=== PATIENT | male | born 1990 | race African-American/Black ===

== ENCOUNTER 2023-07-06 07:57 | Emergency (ER) | payer MEDICAID, SELFPAY ==
--- NOTE | ~2023-07-06 | CT_ITS ---
EXAMINATION: CT HEAD WITHOUT CONTRAST CLINICAL INFORMATION: Headaches. COMPARISON: None. TECHNIQUE: Contiguous axial imaging was performed from the skullbase to vertex without intravenous administration of contrast. This CT examination was performed using dose optimization techniques as appropriate, variously including the following: *Automated exposure control *Adjustment of mA and/or kV according to patient size (this includes techniques or standardized protocols for targeted exams where dose is matched to indication/reason for exam; i.e. extremities or head) *Use of iterative reconstruction technique DLP: 634 mGy-cm. FINDINGS: There is no evidence of acute intracranial hemorrhage or territorial infarction. No abnormal mass effect or midline shift is seen. Diaz to white matter differentiation is well preserved. No extra-axial fluid collections are identified. The ventricles are normal in size. 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 There is no abnormal attenuation within the brain parenchyma. The osseous structures and soft tissues are normal. The mastoid air cells and visualized portions of the paranasal sinuses are well aerated. CT/CT head/brain wo IV con IMPRESSION: No acute intracranial pathology.
[2023-07-06 08:29] VITALS: BP 126/66; PULSE 105; RESP 18; TEMP 36.7; O2SAT 99; BMI 20.7
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
== END 2023-07-06 11:12 | disposition home or self-care (01) ==
PROVIDERS: Emergency Provider Emergency Medicine
DX: G44.209 Tension-type headache, unspecified, not intractable (principal)
CPT/HCPCS: 70450; 99282; 99284

== ENCOUNTER 2023-08-14 23:38 | Emergency (ER) | payer MEDICAID, SELFPAY ==
[2023-08-14 23:49] VITALS: BP 125/85; PULSE 90; RESP 16; TEMP 37; O2SAT 98; BMI 24.6
--- OUTSIDE RECORDS SUMMARY | 2023-08-15 00:02 | XMS_ITS | Continuity of Care Document ---
Author Name Unknown Organization [facility] Address [address] [place] [address]- Care Team Providers Care Tax Credit Leasing Consultant Name Role Phone Hema Luke DO Primary Care Physician [place] [facility] [place]20 [facility] [address] [place], [place] [address] Allergies, Adverse Reactions, Alerts Substance Reaction Severity Status NKA Active Immunizations Not Given Vaccine Date Status Refusal Reason pneumococcal 23-valent vaccine 11/27/20 Not Given Patient Refuses influenza virus vaccine, inactivated 11/27/20 Not Given Patient Refuses Medications benztropine 1 mg oral tablet 0.5 mg, 0.5, tablet, By Mouth, 2 times a day, <OMANI LABEL>, # 30 tablet, Refills 1, Tot. Refills 1, Maintenance, 12/04/20 11:40:00 EST, Route to Pharmacy Electronically, [facility]#[id number], Partial fill upon patient request if the prescrip... Start Date: 12/04/20 Status: Ordered cloNIDine 0.1 mg oral tablet 0.1 mg, 1, tablet, By Mouth, 3 times a day, <OMANI LABEL>, # 90 tablet, Refills 1, Tot. Refills 1, Maintenance, 12/04/20 11:40:00 EST, Route to Pharmacy Electronically, [facility] #[id number], Partial fill upon patient request if the prescripti... Start Date: 12/04/20 Status: Ordered Colace sodium 100 mg oral capsule 100 mg, 1, capsule, By Mouth, 2 times a day, <OMANI LABEL>, # 60 capsule, Refills 1, Tot. Refills 1, Maintenance, 12/04/20 11:40:00 EST, Route to Pharmacy Electronically, [facility]#[id number], Partial fill upon patient request if the prescrip... Start Date: 12/04/20 Status: Ordered FLUoxetine 10 mg oral capsule 10 mg, 1, capsule, By Mouth, Daily, <OMANI LABEL>, # 30 capsule, Refills 1, Tot. Refills 1,Maintenance, 12/04/20 11:40:00 EST, Route to Pharmacy Electronically, [facility] #[id number], Partial fill upon patient request if the prescription is f... Start Date: 12/04/20 Status: Ordered hydrOXYzine pamoate 50 mg oral capsule 1 capsule = 50 mg, By Mouth, 2 times a day, PRN Anxiety, Take one tablet up to twice daily NEEDED for anxiety/sleep <OMANI LABEL>, # 60 capsule, 1 Refills, Maintenance, 12/04/20 11:40:00 EST, Capsule, [facility] #[id number], Partial fill up... Start Date: 12/04/20 Status: Ordered Nicoderm C-Q 7 mg/24 hr transdermal film, extended release 1 patch, Topically, Daily, <OMANI LABEL>, # 30 patch, 0 Refills, Acute 01/02/21 11:42:00 EDT, 12/04/20 11:40:00 EST, Patch, [facility] #[id number], Partial fill upon patient request if the prescription is for a schedule II opioid drug., 170, cm... Start Date: 12/04/20 Stop Date: 01/02/21 Status: Ordered omeprazole 20 mg oral delayed release tablet 1 tablet = 20 mg, By Mouth, Daily in AM, # 30 tablet, 0 Refills, Maintenance, 01/11/18 10:37:23 EDT, EC Tablet Start Date: 01/11/18 Stop Date: 02/10/18 Status: Ordered paliperidone 156 mg/mL intramuscular suspension, extended release = 156 mg, Intramuscular, Once, To administer 156mg IM once on 12/11/2020 (to complete induction). Following doses [id number] thereafter, # 1 each, 0 Refills, Soft Stop, 12/04/20 11:40:00 EST, [facility] #[id number], Partial fill upon patient request... Start Date: 12/04/20 Status: Ordered risperiDONE 1 mg oral tablet 1 mg, 1, tablet, By Mouth, 2 times a day, Stop taking after NEXT Invega injection due on 12/11 <OMANI LABEL>, # 20 tablet, Refills 0, Tot. Refills 0, Maintenance, 12/04/20 11:40:00 EST, Route to Pharmacy Electronically, [facility] #[id number], P... Start Date: 12/04/20 Status: Ordered Tums 500 mg oral tablet, chewable 500 mg, 1, tablet, Chew, 3 times a day, PRN, # 90 tablet, Refills 0, Tot. Refills 0, Maintenance, for control of stomach acid, 01/27/18 16:14:03 EDT, Route to Pharmacy Electronically, [id number], [facility] Start Date: 01/27/18 Status: Ordered Social History Social History Type Response Smoking Status Never smoker entered on: 01/27/18 Sex
--- OUTSIDE RECORDS SUMMARY | 2023-08-15 00:02 | XMS_ITS | Continuity of Care Document ---
Author Name Unknown Organization [facility] Address [address] [place] [address]- Care Team Providers Care Instrument Technician Helper Name Role Phone Hema Luke DO Primary Care Physician [phone] [id number] Date(s): 06/07/22 - 07/18/22 [facility] [address] [place], [place] [address] Attending Physician: Not on Staff, Attending MD Allergies, Adverse Reactions, Alerts No Known Allergies Immunizations Not Given Vaccine Date Status Refusal Reason pneumococcal 23-valent vaccine 11/27/20 Not Given Patient Refuses influenza virus vaccine, inactivated 11/27/20 Not Given Patient Refuses Medications Abilify 15 mg oral tablet 15 mg, 1, tablet, By Mouth, Daily, # 30 tablet, Refills 11, Tot. Refills 11, Maintenance, 12/19/20 9:10:00 EST, Route to Pharmacy Electronically, [facility] #[id number], Label in Burmese, 170, cm, 12/19/20 8:04:00 EST, Height, 47, kg, 12/10/20 16... Start Date: 12/19/20 Status: Ordered benztropine 1 mg oral tablet 0.5 mg, 0.5, tablet, By Mouth, 2 times a day, # 30 tablet, Refills 11, Tot. Refills 11, Maintenance, 12/19/20 9:11:00 EST, Route to Pharmacy Electronically, [facility] #[id number], Label in Burmese, 170, cm, 12/19/20 8:04:00 EST, Height, 47, kg,... Start Date: 12/19/20 Status: Ordered Colace sodium 100 mg oral capsule 100 mg, 1, capsule, By Mouth, 2 times a day, <MOHAWK LABEL>, # 60 capsule, Refills 1, Tot. Refills 1, Maintenance, 12/04/20 11:40:00 EST, Route to Pharmacy Electronically, [facility]#[id number], Partial fill upon patient request if the prescrip... Start Date: 12/04/20 Status: Ordered hydrOXYzine pamoate 50 mg oral capsule 1 capsule = 50 mg, By Mouth, 2 times a day, PRN as needed for anxiety, # 40 capsule, 0 Refills, Maintenance, 12/17/20 8:40:00 EST, Capsule, [facility] #[id number], Label in Burmese, 170, cm, 12/16/20 22:59:00 EST, Height, 47, kg, 12/10/20 16:52:0... Start Date: 12/17/20 Status: Ordered mirtazapine 15 mg oral tablet 0.5 tablet = 7.5 mg, By Mouth, Daily at bedtime, # 15 tablet, 11 Refills, Maintenance, 12/19/20 9:11:00 EST, Tablet, [facility] #[id number], Label in Burmese, 170, cm, 12/19/20 8:04:00 EST, Height, 47, kg, 12/10/20 16:52:00 EST, Dry Weight Start Date: 12/19/20 Status: Ordered Nicoderm C-Q 7 mg/24 hr transdermal film, extended release 1 patch, Topically, Daily, # 30 patch, 0 Refills, Maintenance, 12/17/20 8:43:00 EST, Patch, [facility] #[id number], Label in Burmese, 170, cm, 12/16/20 22:59:00 EST, Height, 47, kg, 12/10/20 16:52:00 EST, Dry Weight Start Date: 12/17/20 Status: Ordered pantoprazole 20 mg oral delayed release tablet = 20 mg, By Mouth, Daily, # 30 tablet, 0 Refills, Maintenance, 12/17/20 8:42:00 EST, EC Tablet, Label in Burmese, 170, cm, 12/16/20 22:59:00 EST, Height, 47, kg, 12/10/20 16:52:00 EST, Dry Weight Start Date: 12/17/20 Status: Ordered propranolol 10 mg oral tablet 10 mg, 1, tablet, By Mouth, 3 times a day, # 90 tablet, Refills 11, Tot. Refills 11, Maintenance, 12/19/20 9:10:00 EST, Route to Pharmacy Electronically, [facility] #[id number], Label in Burmese, 170, cm, 12/19/20 8:04:00 EST, Height, 47, kg, 02/... Start Date: 12/19/20 Status: Ordered Tums 500 mg oral tablet, chewable 500 mg, 1, tablet, Chew, 3 times a day, PRN, # 90 tablet, Refills 0, Tot. Refills 0, Maintenance, for control of stomach acid, 01/27/18 16:14:03 EDT, Route to Pharmacy Electronically, [id number], [facility] 5278 Start Date: 01/27/18 Status: Ordered Social History Social History Type Response Smoking Status Never smoker entered on: 01/27/18 Sex Patient Care team information Personnel Name: Hema Luke DO Address: Address: [address] [place] [address] [place], [place] [address]
--- OUTSIDE RECORDS SUMMARY | 2023-08-15 00:02 | XMS_ITS | Continuity of Care Document ---
Author Name Unknown Organization [facility] Address [address] [place] [address]- Care Team Providers Care Maintenance Team Leader Name Role Phone Hema Luke DO Primary Care Physician [phone] [place] [facility] [place]/25[place]23 [place] 03/27/23 [facility] [address] [place], [place] [address] Attending Physician: Kaycee Bell Admitting Physician: Kaycee Bell Referring Physician: Kaycee Bell Allergies, Adverse Reactions, Alerts No Known Allergies Immunizations Not Given Vaccine Date Status Refusal Reason pneumococcal 23-valent vaccine 11/27/20 Not Given Patient Refuses influenza virus vaccine, inactivated 11/27/20 Not Given Patient Refuses Medications Abilify 15 mg oral tablet 15 mg, 1, tablet, By Mouth, Daily, # 30 tablet, Refills 11, Tot. Refills 11, Maintenance, 12/19/20 9:10:00 EST, Route to Pharmacy Electronically, [facility] #[id number], Label in Marshallese, 170, cm, 12/19/20 8:04:00 EST, Height, 47, kg, 12/10/20 16... Start Date: 12/19/20 Status: Ordered benztropine 1 mg oral tablet 0.5 mg, 0.5, tablet, By Mouth, 2 times a day, # 30 tablet, Refills 11, Tot. Refills 11, Maintenance, 12/19/20 9:11:00 EST, Route to Pharmacy Electronically, [facility] #[id number], Label in Marshallese, 170, cm, 12/19/20 8:04:00 EST, Height, 47, kg,... Start Date: 12/19/20 Status: Ordered Colace sodium 100 mg oral capsule 100 mg, 1, capsule, By Mouth, 2 times a day, <SUDANESE LABEL>, # 60 capsule, Refills 1, Tot. Refills 1, Maintenance, 12/04/20 11:40:00 EST, Route to Pharmacy Electronically, [facility]#[id number], Partial fill upon patient request if the prescrip... Start Date: 12/04/20 Status: Ordered hydrOXYzine pamoate 50 mg oral capsule 1 capsule = 50 mg, By Mouth, 2 times a day, PRN as needed for anxiety, # 40 capsule, 0 Refills, Maintenance, 12/17/20 8:40:00 EST, Capsule, [facility] #[id number], Label in Marshallese, 170, cm, 12/16/20 22:59:00 EST, Height, 47, kg, 12/10/20 16:52:0... Start Date: 12/17/20 Status: Ordered mirtazapine 15 mg oral tablet 0.5 tablet = 7.5 mg, By Mouth, Daily at bedtime, # 15 tablet, 11 Refills, Maintenance, 12/19/20 9:11:00 EST, Tablet, [facility] #[id number], Label in Marshallese, 170, cm, 12/19/20 8:04:00 EST, Height, 47, kg, 12/10/20 16:52:00 EST, Dry Weight Start Date: 12/19/20 Status: Ordered Nicoderm C-Q 7 mg/24 hr transdermal film, extended release 1 patch, Topically, Daily, # 30 patch, 0 Refills, Maintenance, 12/17/20 8:43:00 EST, Patch, [facility] #[id number], Label in Marshallese, 170, cm, 12/16/20 22:59:00 EST, Height, 47, kg, 12/10/20 16:52:00 EST, Dry Weight Start Date: 12/17/20 Status: Ordered pantoprazole 20 mg oral delayed release tablet = 20 mg, By Mouth, Daily, # 30 tablet, 0 Refills, Maintenance, 12/17/20 8:42:00 EST, EC Tablet, Label in Marshallese, 170, cm, 12/16/20 22:59:00 EST, Height, 47, kg, 12/10/20 16:52:00 EST, Dry Weight Start Date: 12/17/20 Status: Ordered propranolol 10 mg oral tablet 10 mg, 1, tablet, By Mouth, 3 times a day, # 90 tablet, Refills 11, Tot. Refills 11, Maintenance, 12/19/20 9:10:00 EST, [id number], Label in Marshallese, 170, cm, 12/19/20 8:04:00 EST, Height, 47, kg, 02/... Start Date: 12/19/20 Status: Ordered Tums 500 mg oral tablet, chewable 500 mg, 1, tablet, Chew, 3 times a day, PRN, # 90 tablet, Refills 0, Tot. Refills 0, Maintenance, for control of stomach acid, 01/27/18 16:14:03 EDT, Route to Pharmacy Electronically, [id number], [facility] 5278 Start Date: 01/27/18 Status: Ordered Social History Social History Type Response Smoking Status Never smoker entered on: 01/27/18 Sex Patient Care team information Care Team Personnel Name: Radha Walker RN Position: [facility] RN Member Role: Primary Care Nurse Name: Beau Bradford Position: S Outreach Member Role: Lifetime Consulting Physician Name: Steffany Fernandez RN Position: S RN Member Role: Primary Care Nurse Name: Josiane Asher RN Position: [facility] RN Supv Member Role: Primary Care Nurse Name: Hema Luke DO Position: [facility] Resident Member Role: PCP Address: Address: [address] [place] [id number]- Care Team Related Persons Name: MARIANO DAVILA Address: home [address] [place] [address] Name: JAYASHREE COBIAN
--- OUTSIDE RECORDS SUMMARY | 2023-08-15 00:02 | XMS_ITS | Continuity of Care Document ---
Author Name Unknown Organization [facility] Address [address] [place] [address]- Care Team Providers Care Verification Clerk Name Role Phone Hema Luke DO Primary Care Physician En[place] [facility] [place] Date(s): 11/25/22 - 12/25/[address] [address] Allergies, Adverse Reactions, Alerts No Known Allergies Immunizations Not Given Vaccine Date Status Refusal Reason pneumococcal 23-valent vaccine 11/27/20 Not Given Patient Refuses influenza virus vaccine, inactivated 11/27/20 Not Given Patient Refuses Medications Abilify 15 mg oral tablet 15 mg, 1, tablet, By Mouth, Daily, # 30 tablet, Refills 11, Tot. Refills 11, Maintenance, 12/19/20 9:10:00 EST, Route to Pharmacy Electronically, [facility] #[id number], Label in Scottish, 170, cm, 12/19/20 8:04:00 EST, Height, 47, kg, 12/10/20 16... Start Date: 12/19/20 Status: Ordered benztropine 1 mg oral tablet 0.5 mg, 0.5, tablet, By Mouth, 2 times a day, # 30 tablet, Refills 11, Tot. Refills 11, Maintenance, 12/19/20 9:11:00 EST, Route to Pharmacy Electronically, [facility] #[id number], Label in Scottish, 170, cm, 12/19/20 8:04:00 EST, Height, 47, kg,... Start Date: 12/19/20 Status: Ordered Colace sodium 100 mg oral capsule 100 mg, 1, capsule, By Mouth, 2 times a day, <FRENCH LABEL>, # 60 capsule, Refills 1, Tot. Refills 1, Maintenance, 12/04/20 11:40:00 EST, Route to Pharmacy Electronically, [facility]#[id number], Partial fill upon patient request if the prescrip... Start Date: 12/04/20 Status: Ordered hydrOXYzine pamoate 50 mg oral capsule 1 capsule = 50 mg, By Mouth, 2 times a day, PRN as needed for anxiety, # 40 capsule, 0 Refills, Maintenance, 12/17/20 8:40:00 EST, Capsule, [facility] #[id number], Label in Scottish, 170, cm, 12/16/20 22:59:00 EST, Height, 47, kg, 12/10/20 16:52:0... Start Date: 12/17/20 Status: Ordered mirtazapine 15 mg oral tablet 0.5 tablet = 7.5 mg, By Mouth, Daily at bedtime, # 15 tablet, 11 Refills, Maintenance, 12/19/20 9:11:00 EST, Tablet, [facility] #[id number], Label in Scottish, 170, cm, 12/19/20 8:04:00 EST, Height, 47, kg, 12/10/20 16:52:00 EST, Dry Weight Start Date: 12/19/20 Status: Ordered Nicoderm C-Q 7 mg/24 hr transdermal film, extended release 1 patch, Topically, Daily, # 30 patch, 0 Refills, Maintenance, 12/17/20 8:43:00 EST, Patch, [facility] #[id number], Label in Scottish, 170, cm, 12/16/20 22:59:00 EST, Height, 47, kg, 12/10/20 16:52:00 EST, Dry Weight Start Date: 12/17/20 Status: Ordered pantoprazole 20 mg oral delayed release tablet = 20 mg, By Mouth, Daily, # 30 tablet, 0 Refills, Maintenance, 12/17/20 8:42:00 EST, EC Tablet, Label in Scottish, 170, cm, 12/16/20 22:59:00 EST, Height, 47, kg, 12/10/20 16:52:00 EST, Dry Weight Start Date: 12/17/20 Status: Ordered propranolol 10 mg oral tablet 10 mg, 1, tablet, By Mouth, 3 times a day, # 90 tablet, Refills 11, Tot. Refills 11, Maintenance, 12/19/20 9:10:00 EST, Route to Pharmacy Electronically, [facility] #[id number], Label in Scottish, 170, cm, 12/19/20 8:04:00 EST, Height, 47, kg, 02/... Start Date: 12/19/20 Status: Ordered Tums 500 mg oral tablet, chewable 500 mg, 1, tablet, Chew, 3 times a day, PRN, # 90 tablet, Refills 0, Tot. Refills 0, Maintenance, for control of stomach acid, 01/27/18 16:14:03 EDT, Route to Pharmacy Electronically, [id number], [facility] Start Date: 01/27/18 Status: Ordered Social History Social History Type Response Smoking Status Never smoker entered on: 01/27/18 Sex Patient Care team information Care Team Personnel Name: Radha Walker RN Position: [facility] RN Member Role: Primary Care Nurse Name: Beau Bradford Position: [facility] Outreach Member Role: Lifetime Consulting Physician Name: Steffany Fernandez RN Position: [facility] RN Member Role: Primary Care Nurse Name: Josiane Asher RN Position: [facility] RN Supv Member Role: Primary Care Nurse Name: Hema Luke DO Position: [facility] Resident Member Role: PCP Address: Address: [address] [place] [id number]- Name: Tita Cummings RN Position: [facility] RN Member Role: Primary Care Nurse Care Team Related Persons Name: MARIANO DAVILA Address: home [address] [place] [address] Name: JAYASHREE COBIAN
--- OUTSIDE RECORDS SUMMARY | 2023-08-15 00:02 | XMS_ITS | Continuity of Care Document ---
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 Phone Hema Luke DO Primary Care Physician [phone] Encounter [facility] [place] Date(s): 06/18/22 - 07/18/22 [facility] [address], [place] [address] Attending Physician: Kaycee Bell Admitting Physician: Kaycee Bell Referring Physician: AdmtrKaycee Allergies, Adverse Reactions, Alerts No Known Allergies Immunizations Not Given Vaccine Date Status Refusal Reason pneumococcal 23-valent vaccine 11/27/20 Not Given Patient Refuses influenza virus vaccine, inactivated 11/27/20 Not Given Patient Refuses Medications Abilify 15 mg oral tablet 15 mg, 1, tablet, By Mouth, Daily, # 30 tablet, Refills 11, Tot. Refills 11, Maintenance, 12/19/20 9:10:00 EST, Route to Pharmacy Electronically, [facility] #[id number], Label in Cymro, 170, cm, 12/19/20 8:04:00 EST, Height, 47, kg, 12/10/20 16... Start Date: 12/19/20 Status: Ordered benztropine 1 mg oral tablet 0.5 mg, 0.5, tablet, By Mouth, 2 times a day, # 30 tablet, Refills 11, Tot. Refills 11, Maintenance, 12/19/20 9:11:00 EST, Route to Pharmacy Electronically, [facility] #[id number], Label in Cymro, 170, cm, 12/19/20 8:04:00 EST, Height, 47, kg,... Start Date: 12/19/20 Status: Ordered Colace sodium 100 mg oral capsule 100 mg, 1, capsule, By Mouth, 2 times a day, <POLISH LABEL>, # 60 capsule, Refills 1, Tot. Refills 1, Maintenance, 12/04/20 11:40:00 EST, Route to Pharmacy Electronically, [facility]#[id number], Partial fill upon patient request if the prescrip... Start Date: 12/04/20 Status: Ordered hydrOXYzine pamoate 50 mg oral capsule 1 capsule = 50 mg, By Mouth, 2 times a day, PRN as needed for anxiety, # 40 capsule, 0 Refills, Maintenance, 12/17/20 8:40:00 EST, Capsule, [facility] #[id number], Label in Cymro, 170, cm, 12/16/20 22:59:00 EST, Height, 47, kg, 12/10/20 16:52:0... Start Date: 12/17/20 Status: Ordered mirtazapine 15 mg oral tablet 0.5 tablet = 7.5 mg, By Mouth, Daily at bedtime, # 15 tablet, 11 Refills, Maintenance, 12/19/20 9:11:00 EST, Tablet, [facility] #[id number], Label in Cymro, 170, cm, 12/19/20 8:04:00 EST, Height, 47, kg, 12/10/20 16:52:00 EST, Dry Weight Start Date: 12/19/20 Status: Ordered Nicoderm C-Q 7 mg/24 hr transdermal film, extended release 1 patch, Topically, Daily, # 30 patch, 0 Refills, Maintenance, 12/17/20 8:43:00 EST, Patch, [facility] #[id number], Label in Cymro, 170, cm, 12/16/20 22:59:00 EST, Height, 47, kg, 12/10/20 16:52:00 EST, Dry Weight Start Date: 12/17/20 Status: Ordered pantoprazole 20 mg oral delayed release tablet = 20 mg, By Mouth, Daily, # 30 tablet, 0 Refills, Maintenance, 12/17/20 8:42:00 EST, EC Tablet, Label in Cymro, 170, cm, 12/16/20 22:59:00 EST, Height, 47, kg, 12/10/20 16:52:00 EST, Dry Weight Start Date: 12/17/20 Status: Ordered propranolol 10 mg oral tablet 10 mg, 1, tablet, By Mouth, 3 times a day, # 90 tablet, Refills 11, Tot. Refills 11, Maintenance, 12/19/20 9:10:00 EST, Route to Pharmacy Electronically, [facility] #[id number], Label in Cymro, 170, cm, 12/19/20 8:04:00 EST, Height, 47, kg, ... Start Date: 12/19/20 Status: Ordered Tums 500 mg oral tablet, chewable 500 mg, 1, tablet, Chew, 3 times a day, PRN, # 90 tablet, Refills 0, Tot. Refills 0, Maintenance, for control of stomach acid, 01/27/18 16:14:03 EDT, Route to Pharmacy Electronically, [id number], [facility] Start Date: 01/27/18 Status: Ordered Social History Social History Type Response Smoking Status Never smoker entered on: 01/27/18 Sex Patient Care team information Personnel Name: Hema Luke DO Address: Address: [address] [place] [address] [place], [place] [address]
--- OUTSIDE RECORDS SUMMARY | 2023-08-15 00:02 | XMS_ITS | Continuity of Care Document ---
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 Phone Miguel MCDONOUGH, Hema Primary Care Physician Unavailab le Encounter [facility] [place] Date(s): 01/11/23 - 04/16/23 [facility] [address] [place] [id number] Attending Physician: Bipin MCLEAN, Vero Bullock Admitting Physician: Bipin MCLEAN, Vero Bullock Allergies, Adverse Reactions, Alerts No Known Allergies Immunizations Not Given Vaccine Date Status Refusal Reason pneumococcal 23-valent vaccine 11/27/20 Not Given Patient Refuses influenza virus vaccine, inactivated 11/27/20 Not Given Patient Refuses Medications Abilify 15 mg oral tablet 15 mg, 1, tablet, By Mouth, Daily, # 30 tablet, Refills 11, Tot. Refills 11, Maintenance, 12/19/20 9:10:00 EST, Route to Pharmacy Electronically, [facility] #[id number], Label in Solomon Islander, 170, cm, 12/19/20 8:04:00 EST, Height, 47, kg, 12/10/20 16... Start Date: 12/19/20 Status: Ordered benztropine 1 mg oral tablet 0.5 mg, 0.5, tablet, By Mouth, 2 times a day, # 30 tablet, Refills 11, Tot. Refills 11, Maintenance, 12/19/20 9:11:00 EST, Route to Pharmacy Electronically, [facility] #[id number], Label in Solomon Islander, 170, cm, 12/19/20 8:04:00 EST, Height, 47, kg,... Start Date: 12/19/20 Status: Ordered Colace sodium 100 mg oral capsule 100 mg, 1, capsule, By Mouth, 2 times a day, <MALAY LABEL>, # 60 capsule, Refills 1, Tot. Refills 1, Maintenance, 12/04/20 11:40:00 EST, Route to Pharmacy Electronically, [facility]#[id number], Partial fill upon patient request if the prescrip... Start Date: 12/04/20 Status: Ordered hydrOXYzine pamoate 50 mg oral capsule 1 capsule = 50 mg, By Mouth, 2 times a day, PRN as needed for anxiety, # 40 capsule, 0 Refills, Maintenance, 12/17/20 8:40:00 EST, Capsule, [facility] #[id number], Label in [place] Islander, 170, cm, 12/16/20 22:59:00 EST, Height, 47, kg, 12/10/20 16:52:0... Start Date: 12/17/20 Status: Ordered mirtazapine 15 mg oral tablet 0.5 tablet = 7.5 mg, By Mouth, Daily at bedtime, # 15 tablet, 11 Refills, Maintenance, 12/19/20 9:11:00 EST, Tablet, [facility] #[id number], Label in Solomon Islander, 170, cm, 12/19/20 8:04:00 EST, Height, 47, kg, 12/10/20 16:52:00 EST, Dry Weight Start Date: 12/19/20 Status: Ordered Nicoderm C-Q 7 mg/24 hr transdermal film, extended release 1 patch, Topically, Daily, # 30 patch, 0 Refills, Maintenance, 12/17/20 8:43:00 EST, Patch, [facility] #[id number], Label in Solomon Islander, 170, cm, 12/16/20 22:59:00 EST, Height, 47, kg, 12/10/20 16:52:00 EST, Dry Weight Start Date: 12/17/20 Status: Ordered pantoprazole 20 mg oral delayed release tablet = 20 mg, By Mouth, Daily, # 30 tablet, 0 Refills, Maintenance, 12/17/20 8:42:00 EST, EC Tablet, Label in Solomon Islander, 170, cm, 12/16/20 22:59:00 EST, Height, 47, kg, 12/10/20 16:52:00 EST, Dry Weight Start Date: 12/17/20 Status: Ordered propranolol 10 mg oral tablet 10 mg, 1, tablet, By Mouth, 3 times a day, # 90 tablet, Refills 11, Tot. Refills 11, Maintenance, 12/19/20 9:10:00 EST, [id number], Label in [place] Islander, 170, cm, 12/19/20 8:04:00 EST, Height, 47, kg, 02/... Start Date: 12/19/20 Status: Ordered Tums 500 mg oral tablet, chewable 500 mg, 1, tablet, Chew, 3 times a day, PRN, # 90 tablet, Refills 0, Tot. Refills 0, Maintenance, for control of stomach acid, 01/27/18 16:14:03 EDT, Route to Pharmacy Electronically, [id number], [facility] Start Date: 01/27/18 Status: Ordered Social History Social History Type Response Smoking Status Never smoker entered on: 01/27/18 Sex Patient Care team information Care Team Personnel Name: Hema Rivera MD Position: [facility] Resident Member Role: PCP Address: Address: [address] [place] [id number]- Name: Radha Walker RN Position: [facility] RN Member Role: Primary Care Nurse Name: Beau Bradford Position: [facility] Outreach Member Role: Lifetime Consulting Physician Name: Steffany Fernandez RN Position: [facility] RN Member Role: Primary Care Nurse Name: Josiane Asher RN Position: [facility] RN Supv Member Role: Primary Care Nurse Care Team Related Persons Name: MARIANO DAVILA Address: home [address] [place] [address] Name: JAYASHREE COBIAN
--- OUTSIDE RECORDS SUMMARY | 2023-08-15 00:02 | XMS_ITS | Continuity of Care Document ---
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 Start Date: 12/19/20 Status: Ordered benztropine 1 mg oral tablet 0.5 mg, 0.5, tablet, By Mouth, 2 times a day, # 30 tablet, Refills 11, Tot. Refills 11, Maintenance, 12/19/20 9:11:00 EST, Route to Pharmacy Electronically, [facility] #[id number], Label in Dominican, 170, cm, 12/19/20 8:04:00 EST, Height, 47, kg,... Start Date: 12/19/20 Status: Ordered Colace sodium 100 mg oral capsule 100 mg, 1, capsule, By Mouth, 2 times a day, <BELIZEAN LABEL>, # 60 capsule, Refills 1, Tot. Refills 1, Maintenance, 12/04/20 11:40:00 EST, Route to Pharmacy Electronically, [facility]#[id number], Partial fill upon patient request if the prescrip... Start Date: 12/04/20 Status: Ordered hydrOXYzine pamoate 50 mg oral capsule 1 capsule = 50 mg, By Mouth, 2 times a day, PRN as needed for anxiety, # 40 capsule, 0 Refills, Maintenance, 12/17/20 8:40:00 EST, Capsule, [facility] #[id number], Label in Dominican, 170, cm, 12/16/20 22:59:00 EST, Height, 47, kg, 12/10/20 16:52:0... Start Date: 12/17/20 Status: Ordered mirtazapine 15 mg oral tablet 0.5 tablet = 7.5 mg, By Mouth, Daily at bedtime, # 15 tablet, 11 Refills, Maintenance, 12/19/20 9:11:00 EST, Tablet, [facility] #[id number], Label in Dominican, 170, cm, 12/19/20 8:04:00 EST, Height, 47, kg, 12/10/20 16:52:00 EST, Dry Weight Start Date: 12/19/20 Status: Ordered Nicoderm C-Q 7 mg/24 hr transdermal film, extended release 1 patch, Topically, Daily, # 30 patch, 0 Refills, Maintenance, 12/17/20 8:43:00 EST, Patch, [facility] #[id number], Label in Dominican, 170, cm, 12/16/20 22:59:00 EST, Height, 47, kg, 12/10/20 16:52:00 EST, Dry Weight Start Date: 12/17/20 Status: Ordered pantoprazole 20 mg oral delayed release tablet = 20 mg, By Mouth, Daily, # 30 tablet, 0 Refills, Maintenance, 12/17/20 8:42:00 EST, EC Tablet, Label in Dominican, 170, cm, 12/16/20 22:59:00 EST, Height, 47, kg, 12/10/20 16:52:00 EST, Dry Weight Start Date: 12/17/20 Status: Ordered propranolol 10 mg oral tablet 10 mg, 1, tablet, By Mouth, 3 times a day, # 90 tablet, Refills 11, Tot. Refills 11, Maintenance, 12/19/20 9:10:00 EST, Route to Pharmacy Electronically, [email or web address] #[id number], Label in Dominican, 170, cm, 12/19/20 8:04:00 EST, Height, 47, kg, 02/... Start Date: 12/19/20 Status: Ordered Tums 500 mg oral tablet, chewable 500 mg, 1, tablet, Chew, 3 times a day, PRN, # 90 tablet, Refills 0, Tot. Refills 0, Maintenance, for control of stomach acid, 01/27/18 16:14:03 EDT, Route to Pharmacy Electronically, [id number], [facility] Start Date: 01/27/18 Status: Ordered Social History Social History Type Response Smoking Status Never smoker entered on: 01/27/18 Sex Patient Care team information Care Team Personnel Name: Radha Walker RN Position: [facility] RN Member Role: Primary Care Nurse Name: Beau Bradford Position: [facility] Outreach Member Role: Lifetime Consulting Physician Name: Steffany eFrnandez RN Position: [facility] RN Member Role: Primary Care Nurse Name: Josiane Asher RN Position: [facility] RN Supv Member Role: Primary Care Nurse Name: Hema Luke DO Position: [facility] Resident Member Role: PCP Address: Address: [address] [place] [address]- Care Team Related Persons Name: MARIANO DAVILA Address: home [address] [place] [id number] Name: JAYASHREE COBIAN
--- OUTSIDE RECORDS SUMMARY | 2023-08-15 00:02 | XMS_ITS | Continuity of Care Document ---
Author Name Unknown Organization 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 [address] [place] [address]- Encounter Diagnosis URI with cough and congestion(Discharge Diagnosis) - 08/03/23 Asthma(Discharge Diagnosis) - 08/03/23 Attending Physician: Nicole Solis MD Referring Physician: Not on Staff, Referring MD Medications albuterol CFC free 90 mcg/inh inhalation aerosol 2, puffs, Inhalation, 4 times a day, PRN, # 18 Gm, Refills 0, Tot. Refills 0, Maintenance, 08/03/2314:51:00 EDT, Aerosol, Route to Pharmacy Electronically, [id number], [id number] Start Date: 08/03/23 Status: Ordered benzonatate 200 mg oral capsule 1 capsule = 200 mg, By Mouth, 3 times a day, PRN as needed for cough, for 14 days, # 42 capsule, 0 Refills, Acute 08/17/23 14:51:00 EDT, 08/03/23 14:51:00 EDT, Capsule, [id number], Partial fill upon patient request if the prescription is for a... Start Date: 08/03/23 Stop Date: 08/17/23 Status: Ordered fluticasone 50 mcg/inh nasal spray 1 sprays, Nares, Both, 2 times a day, # 16 Gm, 0 Refills, Maintenance, 08/03/23 14:51:00 EDT, [place], [id number], Partial fill upon patient request if the prescription is for a schedule II opioid drug., 1 sprays Nares, Both 2 times a day Start Date: 08/03/23 Status: Ordered Problem List Condition Confirmation Course Effective Dates Status Health St atus Informant Asthma Confirmed Active Diagnosis Diagnosis Type Effective Dates Health Status Clinical Service Informant URI with cough and congestion Discharge Diagnosis 08/03/23 Asthma Discharge Diagnosis 08/03/23 Vital Signs Most recent to oldest [Reference Range]: 1 Oxygen Saturation [94-100 %] 100 % (08/03/23 2:21 PM) Pulse Rate [55-90 bpm] 103 bpm *H* (08/03/23 2:21 PM) Blood Pressure [90-138/55-84 mm Hg] 134/ 86mm Hg (08/03/23 2:21 PM) Temperature [96.8-100.4 DegF] 98.8 DegF (08/03/23 2:21 PM) Mode of Delivery (Oxygen) Room air (08/03/23 2:21 PM) Blood pressure sites Arm, right (08/03/23 2:21 PM) Temperature Route Temporal (08/03/23 2:21 PM) Note * Nii Bennett: PERFORM, SIGN, VERIFY Event Display: Patient Education/Instruction Authored Date: [id number] [facility] *[facility] Clinical Summary Name KOLBY OSBORNE Age 33 Years 1990 PCP Not on Staff, PCP PCP Phone Visit Date 08/03/2023 12:25:00 Additional Instructions: Scheduled Appointments?? Future Appointments ?No Future Appointments Scheduled Follow-Up Instructions ?? Diagnosis Medications: Please continue your medications until treatment is completed or stopped by your provider. Discuss any questions related to medications with your provider. Allergy Info:?? Medications Given This Visit Future Orders ?No future orders Vital Signs Height Weight BMI Blood Pressure 134 mm Hg/86 mm Hg Temperature 98.8 DegF Pulse Rate 103 bpm Respiratory Rate 02 Sat Mode of Delivery 100 %/Room air You can now view a summary of your hospital visit from the comfort of your home through a free online portal called [employer]. [employer] is a website that allows you to securely view your medical information including discharge summary, medications and follow-up visits. ??You can alsosend a secure electronic message to your doctor???s office to request appointments, renew medications or just ask a question. You can enroll at [email or web address] or register during your next office visit. Disclaimer:?? The information provided is of a general nature and is intended to be used in conjunction with the recommendations and advice of your health care practitioner. ??Every effort has been made to ensure that the information provided is accurate and complete at the time it is provided to you however, as your needs change, or, as new ??information becomes available, different or additional instructions may be required. If you have questions, please consult with your primary care provider or pharmacist, as appropriate. ??This information is not intended to serve as substitution for assessment and evaluation by a qualified health care provider. If you do not have a primary care provider, you may find a [facility] provider by calling [facility] [employer] at [phone]. [facility], in keeping with [facility] guidance, no longer requires face masks for staff, patientsor visitors in most situations. Similar to time spent indoors at other locations, there is the chance that you were exposed to respiratory viruses during your time with us (such as flu or COVID-19).? If you develop symptoms concerning for a viral respiratory infection, please seek testing (and treatment if indicated) from your medical provider or home test kit. For information about the plan of care including goals and instructions for your diagnosis, please see the patient education orders section of this document. Patient Education Materials?? The content of this educational material or handout may have been modified, supplemented, or adapted from its original content and format to support your individualized medical care. Patient Care team information Care Team Personnel Name: Not on Staff, PCP Position: S Physician (General Medicine) Member Role: PCP
--- OUTSIDE RECORDS SUMMARY | 2023-08-15 00:02 | XMS_ITS | Continuity of Care Document ---
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 Refills 11, Maintenance, 12/19/20 9:10:00 EST, Route to Pharmacy Electronically, [facility] #[id number], Label in Japanese, 170, cm, 12/19/20 8:04:00 EST, Height, 47, kg, 12/10/20 16... Start Date: 12/19/20 Status: Ordered benztropine 1 mg oral tablet 0.5 mg, 0.5, tablet, By Mouth, 2 times a day, # 30 tablet, Refills 11, Tot. Refills 11, Maintenance, 12/19/20 9:11:00 EST, Route to Pharmacy Electronically, [facility] #[id number], Label in Japanese, 170, cm, 12/19/20 8:04:00 EST, Height, 47, kg,... Start Date: 12/19/20 Status: Ordered Colace sodium 100 mg oral capsule 100 mg, 1, capsule, By Mouth, 2 times a day, <BAHAMIAN LABEL>, # 60 capsule, Refills 1, Tot. Refills 1, Maintenance, 12/04/20 11:40:00 EST, Route to Pharmacy Electronically, [facility]#[id number], Partial fill upon patient request if the prescrip... Start Date: 12/04/20 Status: Ordered hydrOXYzine pamoate 50 mg oral capsule 1 capsule = 50 mg, By Mouth, 2 times a day, PRN as needed for anxiety, # 40 capsule, 0 Refills, Maintenance, 12/17/20 8:40:00 EST, Capsule, [facility] #[id number], Label in Japanese, 170, cm, 12/16/20 22:59:00 EST, Height, 47, kg, 12/10/20 16:52:0... Start Date: 12/17/20 Status: Ordered mirtazapine 15 mg oral tablet 0.5 tablet = 7.5 mg, By Mouth, Daily at bedtime, # 15 tablet, 11 Refills, Maintenance, 12/19/20 9:11:00 EST, Tablet, [facility] #[id number], Label in Japanese, 170, cm, 12/19/20 8:04:00 EST, Height, 47, kg, 12/10/20 16:52:00 EST, Dry Weight Start Date: 12/19/20 Status: Ordered Nicoderm C-Q 7 mg/24 hr transdermal film, extended release 1 patch, Topically, Daily, # 30 patch, 0 Refills, Maintenance, 12/17/20 8:43:00 EST, Patch, [facility] #[id number], Label in Japanese, 170, cm, 12/16/20 22:59:00 EST, Height, 47, kg, 12/10/20 16:52:00 EST, Dry Weight Start Date: 12/17/20 Status: Ordered pantoprazole 20 mg oral delayed release tablet = 20 mg, By Mouth, Daily, # 30 tablet, 0 Refills, Maintenance, 12/17/20 8:42:00 EST, EC Tablet, Label in Japanese, 170, cm, 12/16/20 22:59:00 EST, Height, 47, kg, 12/10/20 16:52:00 EST, Dry Weight Start Date: 12/17/20 Status: Ordered propranolol 10 mg oral tablet 10 mg, 1, tablet, By Mouth, 3 times a day, # 90 tablet, Refills 11, Tot. Refills 11, Maintenance, 12/19/20 9:10:00 EST, Route to Pharmacy Electronically, [facility] #[id number], Label in Japanese, 170, cm, 12/19/20 8:04:00 EST, Height, 47, kg, 02/... Start Date: 12/19/20 Status: Ordered Tums 500 mg oral tablet, chewable 500 mg, 1, tablet, Chew, 3 times a day, PRN, # 90 tablet, Refills 0, Tot. Refills 0, Maintenance, for control of stomach acid, 01/27/18 16:14:03 EDT, Route to Pharmacy Electronically, [id number], [facility] Start Date: 01/27/18 Status: Ordered Social History Social History Type Response Smoking Status Never smoker entered on: 01/27/18 Sex Patient Care team information Care Team Personnel Name: Radha Walker RN Position: S RN Member Role: Primary Care Nurse Name: Beau Bradford Position: [facility] Outreach Member Role: Lifetime Consulting Physician Name: Steffany Fernandez RN Position: S RN Member Role: Primary Care Nurse Name: Josiane Asher RN Position: [facility] RN Supv Member Role: Primary Care Nurse Name: Hema Luke DO Position: [facility] Resident Member Role: PCP Address: Address: [address] [place] [id number]- Name: Tita Cummings RN Position: S RN Member Role: Primary Care Nurse Care Team Related Persons Name: MARIANO DAVILA Address: home [address] [place] [address] Name: JAYASHREE COBIAN
--- OUTSIDE RECORDS SUMMARY | 2023-08-15 00:02 | XMS_ITS | Continuity of Care Document ---
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 Refills 11, Maintenance, 12/19/20 9:10:00 EST, Route to Pharmacy Electronically, [id number], Label in Palestinian, 170, cm, 12/19/20 8:04:00 EST, Height, 47, kg, 12/10/20 16... Start Date: 12/19/20 Status: Ordered benztropine 1 mg oral tablet 0.5 mg, 0.5, tablet, By Mouth, 2 times a day, # 30 tablet, Refills 11, Tot. Refills 11, Maintenance, 12/19/20 9:11:00 EST, Route to Pharmacy Electronically, [facility] #[id number], Label in Palestinian, 170, cm, 12/19/20 8:04:00 EST, Height, 47, kg,... Start Date: 12/19/20 Status: Ordered Colace sodium 100 mg oral capsule 100 mg, 1, capsule, By Mouth, 2 times a day, <BOLIVIAN LABEL>, # 60 capsule, Refills 1, Tot. Refills 1, Maintenance, 12/04/20 11:40:00 EST, Route to Pharmacy Electronically, [id number], Partial fill upon patient request if the prescrip... Start Date: 12/04/20 Status: Ordered hydrOXYzine pamoate 50 mg oral capsule 1 capsule = 50 mg, By Mouth, 2 times a day, PRN as needed for anxiety, # 40 capsule, 0 Refills, Maintenance, 12/17/20 8:40:00 EST, Capsule, [facility] #[id number], Label in Palestinian, 170, cm, 12/16/20 22:59:00 EST, Height, 47, kg, 12/10/20 16:52:0... Start Date: 12/17/20 Status: Ordered mirtazapine 15 mg oral tablet 0.5 tablet = 7.5 mg, By Mouth, Daily at bedtime, # 15 tablet, 11 Refills, Maintenance, 12/19/20 9:11:00 EST, Tablet, [facility] #[id number], Label in Palestinian, 170, cm, 12/19/20 8:04:00 EST, Height, 47, kg, 12/10/20 16:52:00 EST, Dry Weight Start Date: 12/19/20 Status: Ordered Nicoderm C-Q 7 mg/24 hr transdermal film, extended release 1 patch, Topically, Daily, # 30 patch, 0 Refills, Maintenance, 12/17/20 8:43:00 EST, Patch, [facility] #[id number], Label in Palestinian, 170, cm, 12/16/20 22:59:00 EST, Height, 47, kg, 12/10/20 16:52:00 EST, Dry Weight Start Date: 12/17/20 Status: Ordered pantoprazole 20 mg oral delayed release tablet = 20 mg, By Mouth, Daily, # 30 tablet, 0 Refills, Maintenance, 12/17/20 8:42:00 EST, EC Tablet, Label in Palestinian, 170, cm, 12/16/20 22:59:00 EST, Height, 47, kg, 12/10/20 16:52:00 EST, Dry Weight Start Date: 12/17/20 Status: Ordered propranolol 10 mg oral tablet 10 mg, 1, tablet, By Mouth, 3 times a day, # 90 tablet, Refills 11, Tot. Refills 11, Maintenance, 12/19/20 9:10:00 EST, Route to Pharmacy Electronically, [facility] #[id number], Label in Palestinian, 170, cm, 12/19/20 8:04:00 EST, Height, 47, kg, 02/... Start Date: 12/19/20 Status: Ordered Tums 500 mg oral tablet, chewable 500 mg, 1, tablet, Chew, 3 times a day, PRN, # 90 tablet, Refills 0, Tot. Refills 0, Maintenance, for control of stomach acid, 01/27/18 16:14:03 EDT, Route to Pharmacy Electronically, [id number], [facility] Start Date: 01/27/18 Status: Ordered Social History Social History Type Response Smoking Status Never smoker entered on: 01/27/18 Sex Patient Care team information Care Team Personnel Name: Radha Walker RN Position: [facility] RN Member Role: Primary Care Nurse Name: Beau Bradford Position: [facility] Outreach Member Role: Lifetime Consulting Physician Name: Steffany Fernandez RN Position: S RN Member Role: Primary Care Nurse Name: Josiane Asher RN Position: [facility] RN Supv Member Role: Primary Care Nurse Name: Hema Luke DO Position: [facility] Resident Member Role: PCP Address: Address: [address] [place] [address]- Name: Tita Cummings RN Position: S RN Member Role: Primary Care Nurse Care Team Related Persons Name: MARIANO DAVILA Address: home [address] [place] [address] Name: JAYASHREE COBIAN
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
--- OUTSIDE RECORDS SUMMARY | 2023-08-15 00:02 | XMS_ITS | Continuity of Care Document ---
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 Start Date: 12/19/20 Status: Ordered benztropine 1 mg oral tablet 0.5 mg, 0.5, tablet, By Mouth, 2 times a day, # 30 tablet, Refills 11, Tot. Refills 11, Maintenance, 12/19/20 9:11:00 EST, Route to Pharmacy Electronically, [facility] #[id number], Label in [place], 170, cm, 12/19/20 8:04:00 EST, Height, 47, kg,... Start Date: 12/19/20 Status: Ordered Colace sodium 100 mg oral capsule 100 mg, 1, capsule, By Mouth, 2 times a day, <LAO LABEL>, # 60 capsule, Refills 1, Tot. Refills 1, Maintenance, 12/04/20 11:40:00 EST, Route to Pharmacy Electronically, [facility][id number], Partial fill upon patient request if the prescrip... Start Date: 12/04/20 Status: Ordered hydrOXYzine pamoate 50 mg oral capsule 1 capsule = 50 mg, By Mouth, 2 times a day, PRN as needed for anxiety, # 40 capsule, 0 Refills, Maintenance, 12/17/20 8:40:00 EST, Capsule, [facility] #[id number], Label in Sw[place], 170, cm, 12/16/20 22:59:00 EST, Height, 47, kg, 12/10/20 16:52:0... Start Date: 12/17/20 Status: Ordered mirtazapine 15 mg oral tablet 0.5 tablet = 7.5 mg, By Mouth, Daily at bedtime, # 15 tablet, 11 Refills, Maintenance, 12/19/20 9:11:00 EST, Tablet, [facility] #[id number], Label in Swazi, 170, cm, 12/19/20 8:04:00 EST, Height, 47, kg, 12/10/20 16:52:00 EST, Dry Weight Start Date: 12/19/20 Status: Ordered Nicoderm C-Q 7 mg/24 hr transdermal film, extended release 1 patch, Topically, Daily, # 30 patch, 0 Refills, Maintenance, 12/17/20 8:43:00 EST, Patch, [facility] #[id number], Label in Swazi, 170, cm, 12/16/20 22:59:00 EST, Height, 47, kg, 12/10/20 16:52:00 EST, Dry Weight Start Date: 12/17/20 Status: Ordered pantoprazole 20 mg oral delayed release tablet = 20 mg, By Mouth, Daily, # 30 tablet, 0 Refills, Maintenance, 12/17/20 8:42:00 EST, EC Tablet, Label in Swazi, 170, cm, 12/16/20 22:59:00 EST, Height, 47, kg, 12/10/20 16:52:00 EST, Dry Weight Start Date: 12/17/20 Status: Ordered propranolol 10 mg oral tablet 10 mg, 1, tablet, By Mouth, 3 times a day, # 90 tablet, Refills 11, Tot. Refills 11, Maintenance, 12/19/20 9:10:00 EST, [facility], [id number], Label in Swazi, 170, cm, 12/19/20 8:04:00 EST, Height, 47, kg, ... Start Date: 12/19/20 Status: Ordered Tums 500 mg oral tablet, chewable 500 mg, 1, tablet, Chew, 3 times a day, PRN, # 90 tablet, Refills 0, Tot. Refills 0, Maintenance, for control of stomach acid, 01/27/18 16:14:03 EDT, Route to Pharmacy Electronically, [id number], [facility] Start Date: 01/27/18 Status: Ordered Social History Social History Type Response Smoking Status Never smoker entered on: 01/27/18 Sex
--- OUTSIDE RECORDS SUMMARY | 2023-08-15 00:02 | XMS_ITS | Continuity of Care Document ---
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 [id number] Date(s): 09/24/22 - 10/01/22 [facility] [address] [place], [place] [email or web address] Attending Physician: David Baxter DO Allergies, Adverse Reactions, Alerts No Known Allergies Immunizations Not Given Vaccine Date Status Refusal Reason pneumococcal 23-valent vaccine 11/27/20 Not Given Patient Refuses influenza virus vaccine, inactivated 11/27/20 Not Given Patient Refuses Medications Abilify 15 mg oral tablet 15 mg, 1, tablet, By Mouth, Daily, # 30 tablet, Refills 11, Tot. Refills 11, Maintenance, 12/19/20 9:10:00 EST, Route to Pharmacy Electronically, [facility] #[id number], Label in Sri Lankan, 170, cm, 12/19/20 8:04:00 EST, Height, 47, kg, 12/10/20 16... Start Date: 12/19/20 Status: Ordered benztropine 1 mg oral tablet 0.5 mg, 0.5, tablet, By Mouth, 2 times a day, # 30 tablet, Refills 11, Tot. Refills 11, Maintenance, 12/19/20 9:11:00 EST, Route to Pharmacy Electronically, [facility] #[id number], Label in [place] Lankan, 170, cm, 12/19/20 8:04:00 EST, Height, 47, kg,... Start Date: 12/19/20 Status: Ordered Colace sodium 100 mg oral capsule 100 mg, 1, capsule, By Mouth, 2 times a day, <SAMOAN LABEL>, # 60 capsule, Refills 1, Tot. Refills 1, Maintenance, 12/04/20 11:40:00 EST, Route to Pharmacy Electronically, [facility]#[id number], Partial fill upon patient request if the prescrip... Start Date: 12/04/20 Status: Ordered hydrOXYzine pamoate 50 mg oral capsule 1 capsule = 50 mg, By Mouth, 2 times a day, PRN as needed for anxiety, # 40 capsule, 0 Refills, Maintenance, 12/17/20 8:40:00 EST, Capsule, [facility] #[id number], Label in [place]ankan, 170, cm, 12/16/20 22:59:00 EST, Height, 47, kg, 12/10/20 16:52:0... Start Date: 12/17/20 Status: Ordered mirtazapine 15 mg oral tablet 0.5 tablet = 7.5 mg, By Mouth, Daily at bedtime, # 15 tablet, 11 Refills, Maintenance, 12/19/20 9:11:00 EST, Tablet, [facility] #[id number], Label in [place]an, 170, cm, 12/19/20 8:04:00 EST, Height, 47, kg, 12/10/20 16:52:00 EST, Dry Weight Start Date: 12/19/20 Status: Ordered Nicoderm C-Q 7 mg/24 hr transdermal film, extended release 1 patch, Topically, Daily, # 30 patch, 0 Refills, Maintenance, 12/17/20 8:43:00 EST, Patch, [facility] #[id number], Label in [place]an, 170, cm, 12/16/20 22:59:00 EST, Height, 47, kg, 12/10/20 16:52:00 EST, Dry Weight Start Date: 12/17/20 Status: Ordered pantoprazole 20 mg oral delayed release tablet = 20 mg, By Mouth, Daily, # 30 tablet, 0 Refills, Maintenance, 12/17/20 8:42:00 EST, EC Tablet, Label in [place], 170, cm, 12/16/20 22:59:00 EST, Height, 47, kg, 12/10/20 16:52:00 EST, Dry Weight Start Date: 12/17/20 Status: Ordered propranolol 10 mg oral tablet 10 mg, 1, tablet, By Mouth, 3 times a day, # 90 tablet, Refills 11, Tot. Refills 11, Maintenance, 12/19/20 9:10:00 EST, [id number], Label in [place]ankan, 170, cm, 12/19/20 8:04:00 EST, Height, 47, kg, 02/... Start Date: 12/19/20 Status: Ordered Tums 500 mg oral tablet, chewable 500 mg, 1, tablet, Chew, 3 times a day, PRN, # 90 tablet, Refills 0, Tot. Refills 0, Maintenance, for control of stomach acid, 01/27/18 16:14:03 EDT, Route to Pharmacy Electronically, [id number], [facility] Start Date: 01/27/18 Status: Ordered Vital Signs Most recent to oldest [Reference Range]: 1 Height 170 cm (09/24/22 5:47 PM) Oxygen Saturation [94-100 %] 100 % (09/24/22 5:47 PM) Pulse Rate [55-90 bpm] 71 bpm (09/24/22 5:47 PM) Blood Pressure [90-138/55-84 mm Hg] 116/ 76mm Hg (09/24/22 5:47 PM) Respiratory Rate [16-30 br/min] 16 br/mi n (09/24/22 5:47 PM) Temperature [96.8-100.4 DegF] 98.5 DegF (09/24/22 5:47 PM) Mode of Delivery (Oxygen) Room air (09/24/22 5:47 PM) Blood pressure sites Arm, right (09/24/22 5:47 PM) Temperature Route Temporal (09/24/22 5:47 PM) Social History Social History Type Response Smoking Status Never smoker entered on: 01/27/18 Sex Patient Care team information Care Team Personnel Name: Radha Walker RN Position: [facility] RN Member Role: Primary Care Nurse Name: Beau Bradford Position: S Outreach Member Role: Lifetime Consulting Physician Name: Steffany Fernandez RN Position: S RN Member Role: Primary Care Nurse Name: Josiane Asher RN Position: [facility] RN Supv Member Role: Primary Care Nurse Name: Hema Luke DO Position: S Resident Member Role: PCP Address: Address: [address] [place] [address]- Name: Tita Cummings RN Position: [facility] RN Member Role: Primary Care Nurse Care Team Related Persons Name: MARIANO DAVILA Address: home [address] [place] [address] Name: JAYASHREE COBIAN
--- OUTSIDE RECORDS SUMMARY | 2023-08-15 00:02 | XMS_ITS | Continuity of Care Document ---
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 Start Date: 12/19/20 Status: Ordered benztropine 1 mg oral tablet 0.5 mg, 0.5, tablet, By Mouth, 2 times a day, # 30 tablet, Refills 11, Tot. Refills 11, Maintenance, 12/19/20 9:11:00 EST, Route to Pharmacy Electronically, [facility] #[id number], Label in [place], 170, cm, 12/19/20 8:04:00 EST, Height, 47, kg,... Start Date: 12/19/20 Status: Ordered Colace sodium 100 mg oral capsule 100 mg, 1, capsule, By Mouth, 2 times a day, <AZERBAIJANI LABEL>, # 60 capsule, Refills 1, Tot. Refills 1, Maintenance, 12/04/20 11:40:00 EST, Route to Pharmacy Electronically, [facility][id number], Partial fill upon patient request if the prescrip... Start Date: 12/04/20 Status: Ordered hydrOXYzine pamoate 50 mg oral capsule 1 capsule = 50 mg, By Mouth, 2 times a day, PRN as needed for anxiety, # 40 capsule, 0 Refills, Maintenance, 12/17/20 8:40:00 EST, Capsule, [facility] #[id number], Label in [place], 170, cm, 12/16/20 22:59:00 EST, Height, 47, kg, 12/10/20 16:52:0... Start Date: 12/17/20 Status: Ordered mirtazapine 15 mg oral tablet 0.5 tablet = 7.5 mg, By Mouth, Daily at bedtime, # 15 tablet, 11 Refills, Maintenance, 12/19/20 9:11:00 EST, Tablet, [facility] #[id number], Label in [place], 170, cm, 12/19/20 8:04:00 EST, Height, 47, kg, 12/10/20 16:52:00 EST, Dry Weight Start Date: 12/19/20 Status: Ordered Nicoderm C-Q 7 mg/24 hr transdermal film, extended release 1 patch, Topically, Daily, # 30 patch, 0 Refills, Maintenance, 12/17/20 8:43:00 EST, Patch, [facility] #[id number], Label in [place], 170, cm, 12/16/20 22:59:00 EST, Height, 47, kg, 12/10/20 16:52:00 EST, Dry Weight Start Date: 12/17/20 Status: Ordered pantoprazole 20 mg oral delayed release tablet = 20 mg, By Mouth, Daily, # 30 tablet, 0 Refills, Maintenance, 12/17/20 8:42:00 EST, EC Tablet, Label in [place], 170, cm, 12/16/20 22:59:00 EST, Height, 47, kg, 12/10/20 16:52:00 EST, Dry Weight Start Date: 12/17/20 Status: Ordered propranolol 10 mg oral tablet 10 mg, 1, tablet, By Mouth, 3 times a day, # 90 tablet, Refills 11, Tot. Refills 11, Maintenance, 12/19/20 9:10:00 EST, Route to Pharmacy Electronically, [facility] #[id number], Label in [place], 170, cm, 12/19/20 8:04:00 EST, Height, 47, kg, ... Start Date: 12/19/20 Status: Ordered Tums 500 mg oral tablet, chewable 500 mg, 1, tablet, Chew, 3 times a day, PRN, # 90 tablet, Refills 0, Tot. Refills 0, Maintenance, for control of stomach acid, 01/27/18 16:14:03 EDT, Route to Pharmacy Electronically, [id number], [facility] Start Date: 01/27/18 Status: Ordered Social History Social History Type Response Smoking Status Never smoker entered on: 01/27/18 Sex
--- OUTSIDE RECORDS SUMMARY | 2023-08-15 00:02 | XMS_ITS | Continuity of Care Document ---
Author Name Unknown Organization [facility] ter Address [address] [place] [address]- Care Team Providers Care Obstetrics Gynecology Physician Name Role Phone Hema Luke DO [id number] Date[facility] 10/26/[facility] - 10/31/[address] [address]- Discharge Disposition: A-D/C Home Attending Physician: Nany Tanner MD Admitting Physician: Nany Tanner MD Referring Physician: Not on Staff, Referring [...] Once, To administer 156mg IM once on 11/05/2020. Next dose of 156mg IM on 12/03/2020 and thereafter every 4 weeks., # 1 mL, 0 Refills, Soft Stop, 10/31/20 11:30:00 [facility], [facility], Partial fill upon patient r... Start Date: 10/31/20 Status: Ordered pantoprazole 40 mg oral delayed [...] 01/27/18 16:14:03 EDT, Route to Pharmacy Electronically, [id number] Start Date: 01/27/18 Status: Ordered Vital Signs Most recent to oldest [Reference Range]: 1 2 3 Oxygen Saturation [94-100 %] 100 % (10/31/20 12:00 PM) 99 % (10/31/20 6:42 AM) 100 % (10/30/20 8:05 PM) Pulse Rate [55-90 bpm] 109 bpm *H* (10/31/20 12:00 PM) 117 bpm *H* (10/31/20 6:42 AM) 96 bpm *H* (10/30/20 8:05 PM) Blood Pressure [90-138/55-84 mm Hg] 108/60mm Hg (10/31/20 12:00 PM) 102/57mm Hg (10/31/20 6:42 AM) 116/67mm Hg (10/30/20 8:05 PM) Respiratory Rate [16-30 br/min] 15 br/min *L* (10/31/20 6:42 AM) 18 br/min (10/30/20 8:05 PM) 18 br/min (10/30/20 3:26 PM) Temperature [96.8-100.4 DegF] 98 DegF (10/31/20 12:00 PM) 98.3 DegF (10/31/20 6:42 AM) 97.6 DegF (10/30/20 8:05 PM) Mode of Delivery (Oxygen) Room air (10/31/20 12:00 PM) Room air (10/31/20 6:42 AM) Room air (10/30/20 8:05 PM) Blood pressure sites Arm, left (10/31/20 6:42 AM) Arm, right (10/30/20 8:05 PM) Arm, right (10/30/20 3:26 PM) Temperature Route Oral (10/31/20 12:00 PM) Oral (10/31/20 6:42 AM) Oral (10/30/20 8:05 PM) Social History Social History Type Response Smoking Status Never smoker entered on: 01/27/18 Sex
--- OUTSIDE RECORDS SUMMARY | 2023-08-15 00:03 | XMS_ITS | Continuity of Care Document ---
Demographics Address 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 Start Date: 12/19/20 Status: Ordered benztropine 1 mg oral tablet 0.5 mg, 0.5, tablet, By Mouth, 2 times a day, # 30 tablet, Refills 11, Tot. Refills 11, Maintenance, 12/19/20 9:11:00 EST, Route to Pharmacy Electronically, [facility] #[id number], Label in Armenian, 170, cm, 12/19/20 8:04:00 EST, Height, 47, kg,... Start Date: 12/19/20 Status: Ordered Colace sodium 100 mg oral capsule 100 mg, 1, capsule, By Mouth, 2 times a day, <NORTHERN IRISH LABEL>, # 60 capsule, Refills 1, Tot. Refills 1, Maintenance, 12/04/20 11:40:00 EST, Route to Pharmacy Electronically, [facility][id number], Partial fill upon patient request if the prescrip... Start Date: 12/04/20 Status: Ordered hydrOXYzine pamoate 50 mg oral capsule 1 capsule = 50 mg, By Mouth, 2 times a day, PRN as needed for anxiety, # 40 capsule, 0 Refills, Maintenance, 12/17/20 8:40:00 EST, Capsule, [facility] #[id number], Label in Armenian, 170, cm, 12/16/20 22:59:00 EST, Height, 47, kg, 12/10/20 16:52:0... Start Date: 12/17/20 Status: Ordered mirtazapine 15 mg oral tablet 0.5 tablet = 7.5 mg, By Mouth, Daily at bedtime, # 15 tablet, 11 Refills, Maintenance, 12/19/20 9:11:00 EST, Tablet, [facility] #[id number], Label in Armenian, 170, cm, 12/19/20 8:04:00 EST, Height, 47, kg, 12/10/20 16:52:00 EST, Dry Weight Start Date: 12/19/20 Status: Ordered Nicoderm C-Q 7 mg/24 hr transdermal film, extended release 1 patch, Topically, Daily, # 30 patch, 0 Refills, Maintenance, 12/17/20 8:43:00 EST, Patch, [facility] #[id number], Label in Armenian, 170, cm, 12/16/20 22:59:00 EST, Height, 47, kg, 12/10/20 16:52:00 EST, Dry Weight Start Date: 12/17/20 Status: Ordered pantoprazole 20 mg oral delayed release tablet = 20 mg, By Mouth, Daily, # 30 tablet, 0 Refills, Maintenance, 12/17/20 8:42:00 EST, EC Tablet, Label in Armenian, 170, cm, 12/16/20 22:59:00 EST, Height, 47, kg, 12/10/20 16:52:00 EST, Dry Weight Start Date: 12/17/20 Status: Ordered propranolol 10 mg oral tablet 10 mg, 1, tablet, By Mouth, 3 times a day, # 90 tablet, Refills 11, Tot. Refills 11, Maintenance, 12/19/20 9:10:00 EST, Route to Pharmacy Electronically, [facility] #[id number], Label in Armenian, 170, cm, 12/19/20 8:04:00 EST, Height, 47, kg, 02/... Start Date: 12/19/20 Status: Ordered Tums 500 mg oral tablet, chewable 500 mg, 1, tablet, Chew, 3 times a day, PRN, # 90 tablet, Refills 0, Tot. Refills 0, Maintenance, for control of stomach acid, 01/27/18 16:14:03 EDT, Route to Pharmacy Electronically, [id number], [facility] Start Date: 01/27/18 Status: Ordered Social History Social History Type Response Smoking Status Never smoker entered on: 01/27/18 Sex Patient Care team information Care Team Personnel Name: Radha Walker RN Position: [facility] RN Member Role: Primary Care Nurse Name: Beau Bradford Position: S Outreach Member Role: Lifetime Consulting Physician Name: Steffany Fernandez RN Position: S RN Member Role: Primary Care Nurse Name: Josiane Asher RN Position: [facility] RN Supv Member Role: Primary Care Nurse Name: Hema Luke DO Position: [facility] Resident Member Role: PCP Address: Address: [address] [place] [id number]- Name: Tita Cummings RN Position: S RN Member Role: Primary Care Nurse Care Team Related Persons Name: MARIANO DAVILA Address: home [address] [place] [address] Name: JAYASHREE COBIAN
--- OUTSIDE RECORDS SUMMARY | 2023-08-15 00:03 | XMS_ITS | Continuity of Care Document ---
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 [place] Date(s): 12/19/20 - 01/18/21 [facility] [address] [place], [place] [address] Attending Physician: Kaycee Bell Admitting Physician: Kaycee [...] 12/19/20 9:10:00 EST, Route to Pharmacy Electronically, [facility] #[id number], Label in Albanian, 170, cm, 12/19/20 8:04:00 EST, Height, 47, kg, 12/10/20 16... Start Date: 12/19/20 Status: Ordered benztropine 1 mg oral tablet 0.5 mg, 0.5, tablet, By Mouth, 2 times a day, # 30 tablet, Refills 11, Tot. Refills 11, Maintenance, 12/19/20 9:11:00 EST, Route to Pharmacy Electronically, [facility] #[id number], Label in Albanian, 170, cm, 12/19/20 8:04:00 EST, Height, 47, kg,... Start Date: 12/19/20 Status: Ordered Colace sodium 100 mg oral capsule 100 mg, 1, capsule, By Mouth, 2 times a day, <CHINESE LABEL>, # 60 capsule, Refills 1, Tot. Refills 1, Maintenance, 12/04/20 11:40:00 EST, Route to Pharmacy Electronically, [facility]#[id number], Partial fill upon patient request if the prescrip... Start Date: 12/04/20 Status: Ordered hydrOXYzine pamoate 50 mg oral capsule 1 capsule = 50 mg, By Mouth, 2 times a day, PRN as needed for anxiety, # 40 capsule, 0 Refills, Maintenance, 12/17/20 8:40:00 EST, Capsule, [facility] #[id number], Label in Albanian, 170, cm, 12/16/20 22:59:00 EST, Height, 47, kg, 12/10/20 16:52:0... Start Date: 12/17/20 Status: Ordered mirtazapine 15 mg oral tablet 0.5 tablet = 7.5 mg, By Mouth, Daily at bedtime, # 15 tablet, 11 Refills, Maintenance, 12/19/20 9:11:00 EST, Tablet, [facility] #[id number], Label in Albanian, 170, cm, 12/19/20 8:04:00 EST, Height, 47, kg, 12/10/20 16:52:00 EST, Dry Weight Start Date: 12/19/20 Status: Ordered Nicoderm C-Q 7 mg/24 hr transdermal film, extended release 1 patch, Topically, Daily, # 30 patch, 0 Refills, Maintenance, 12/17/20 8:43:00 EST, Patch, [facility] #[id number], Label in Albanian, 170, cm, 12/16/20 22:59:00 EST, Height, 47, kg, 12/10/20 16:52:00 EST, Dry Weight Start Date: 12/17/20 Status: Ordered pantoprazole 20 mg oral delayed release tablet = 20 mg, By Mouth, Daily, # 30 tablet, 0 Refills, Maintenance, 12/17/20 8:42:00 EST, EC Tablet, Label in Albanian, 170, cm, 12/16/20 22:59:00 EST, Height, 47, kg, 12/10/20 16:52:00 EST, Dry Weight Start Date: 12/17/20 Status: Ordered propranolol 10 mg oral tablet 10 mg, 1, tablet, By Mouth, 3 times a day, # 90 tablet, Refills 11, Tot. Refills 11, Maintenance, 12/19/20 9:10:00 EST, Route to Pharmacy Electronically, [facility] #[id number], Label in Albanian, 170, cm, 12/19/20 8:04:00 EST, Height, 47, kg, ... Start Date: 12/19/20 Status: Ordered Tums 500 mg oral tablet, chewable 500 mg, 1, tablet, Chew, 3 times a day, PRN, # 90 tablet, Refills 0, Tot. Refills 0, Maintenance, for control of stomach acid, 01/27/18 16:14:03 EDT, Route to Pharmacy Electronically, [id number], [facility] Start Date: 01/27/18 Status: Ordered Social History Social History Type Response Smoking Status Never smoker entered on: 01/27/18 Sex
--- OUTSIDE RECORDS SUMMARY | 2023-08-15 00:03 | XMS_ITS | Continuity of Care Document ---
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 Start Date: 12/19/20 Status: Ordered benztropine 1 mg oral tablet 0.5 mg, 0.5, tablet, By Mouth, 2 times a day, # 30 tablet, Refills 11, Tot. Refills 11, Maintenance, 12/19/20 9:11:00 EST, Route to Pharmacy Electronically, [facility] #[id number], Label in Emirati, 170, cm, 12/19/20 8:04:00 EST, Height, 47, kg,... Start Date: 12/19/20 Status: Ordered Colace sodium 100 mg oral capsule 100 mg, 1, capsule, By Mouth, 2 times a day, <INDONESIAN LABEL>, # 60 capsule, Refills 1, Tot. Refills 1, Maintenance, 12/04/20 11:40:00 EST, Route to Pharmacy Electronically, [facility]#[id number], Partial fill upon patient request if the prescrip... Start Date: 12/04/20 Status: Ordered hydrOXYzine pamoate 50 mg oral capsule 1 capsule = 50 mg, By Mouth, 2 times a day, PRN as needed for anxiety, # 40 capsule, 0 Refills, Maintenance, 12/17/20 8:40:00 EST, Capsule, [facility] #[id number], Label in Emirati, 170, cm, 12/16/20 22:59:00 EST, Height, 47, kg, 12/10/20 16:52:0... Start Date: 12/17/20 Status: Ordered mirtazapine 15 mg oral tablet 0.5 tablet = 7.5 mg, By Mouth, Daily at bedtime, # 15 tablet, 11 Refills, Maintenance, 12/19/20 9:11:00 EST, Tablet, [facility] #[id number], Label in Emirati, 170, cm, 12/19/20 8:04:00 EST, Height, 47, kg, 12/10/20 16:52:00 EST, Dry Weight Start Date: 12/19/20 Status: Ordered Nicoderm C-Q 7 mg/24 hr transdermal film, extended release 1 patch, Topically, Daily, # 30 patch, 0 Refills, Maintenance, 12/17/20 8:43:00 EST, Patch, [facility] #[id number], Label in Emirati, 170, cm, 12/16/20 22:59:00 EST, Height, 47, kg, 12/10/20 16:52:00 EST, Dry Weight Start Date: 12/17/20 Status: Ordered pantoprazole 20 mg oral delayed release tablet = 20 mg, By Mouth, Daily, # 30 tablet, 0 Refills, Maintenance, 12/17/20 8:42:00 EST, EC Tablet, Label in Emirati, 170, cm, 12/16/20 22:59:00 EST, Height, 47, kg, 12/10/20 16:52:00 EST, Dry Weight Start Date: 12/17/20 Status: Ordered propranolol 10 mg oral tablet 10 mg, 1, tablet, By Mouth, 3 times a day, # 90 tablet, Refills 11, Tot. Refills 11, Maintenance, 12/19/20 9:10:00 EST, Route to Pharmacy Electronically, [facility] #[id number], Label in Emirati, 170, cm, 12/19/20 8:04:00 EST, Height, 47, kg, ... Start Date: 12/19/20 Status: Ordered Tums 500 mg oral tablet, chewable 500 mg, 1, tablet, Chew, 3 times a day, PRN, # 90 tablet, Refills 0, Tot. Refills 0, Maintenance, for control of stomach acid, 01/27/18 16:14:03 EDT, Route to Pharmacy Electronically, [id number], [facility] Start Date: 01/27/18 Status: Ordered Social History Social History Type Response Smoking Status Never smoker entered on: 01/27/18 Sex
--- OUTSIDE RECORDS SUMMARY | 2023-08-15 00:03 | XMS_ITS | Continuity of Care Document ---
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 Role Phone Hema Luke DO Primary Care Physician [phone] Encounter [facility] [place] Date(s): 12/16/22 - 12/16/[address] [address]- Encounter Diagnosis Chest pain(Final) - 12/16/22 Headache(Final) - 12/16/22 Discharge Disposition: A-D/C Home Attending Physician: Hema Kuhn DO Admitting Physician: Hema Kuhn DO Referring Physician: Not on Staff, Referring MD Allergies, Adverse Reactions, Alerts No Known Allergies Immunizations Not Given Vaccine Date Status Refusal Reason pneumococcal 23-valent vaccine 11/27/20 Not Given Patient Refuses influenza virus vaccine, inactivated 11/27/20 Not Given Patient Refuses Medications Abilify 15 mg oral tablet 15 mg, 1, tablet, By Mouth, Daily, # 30 tablet, Refills 11, Tot. Refills 11, Maintenance, 12/19/20 9:10:00 EST, Route to Pharmacy Electronically, [facility] #[id number], Label in [place], 170, cm, 12/19/20 8:04:00 EST, Height, 47, kg, 12/10/20 16... Start Date: 12/19/20 Status: Ordered benztropine 1 mg oral tablet 0.5 mg, 0.5, tablet, By Mouth, 2 times a day, # 30 tablet, Refills 11, Tot. Refills 11, Maintenance, 12/19/20 9:11:00 EST, Route to Pharmacy Electronically, [facility] #[id number], Label in [place], 170, cm, 12/19/20 8:04:00 EST, Height, 47, kg,... Start Date: 12/19/20 Status: Ordered Colace sodium 100 mg oral capsule 100 mg, 1, capsule, By Mouth, 2 times a day, <AMHARIC LABEL>, # 60 capsule, Refills 1, Tot. Refills 1, Maintenance, 12/04/20 11:40:00 EST, Route to Pharmacy Electronically, [facility]#[id number], Partial fill upon patient request if the prescrip... Start Date: 12/04/20 Status: Ordered hydrOXYzine pamoate 50 mg oral capsule 1 capsule = 50 mg, By Mouth, 2 times a day, PRN as needed for anxiety, # 40 capsule, 0 Refills, Maintenance, 12/17/20 8:40:00 EST, Capsule, [facility] #[id number], Label in [place], 170, cm, 12/16/20 22:59:00 EST, Height, 47, kg, 12/10/20 16:52:0... Start Date: 12/17/20 Status: Ordered mirtazapine 15 mg oral tablet 0.5 tablet = 7.5 mg, By Mouth, Daily at bedtime, # 15 tablet, 11 Refills, Maintenance, 12/19/20 9:11:00 EST, Tablet, [facility] #[id number], Label in [place], 170, cm, 12/19/20 8:04:00 EST, Height, 47, kg, 12/10/20 16:52:00 EST, Dry Weight Start Date: 12/19/20 Status: Ordered Nicoderm C-Q 7 mg/24 hr transdermal film, extended release 1 patch, Topically, Daily, # 30 patch, 0 Refills, Maintenance, 12/17/20 8:43:00 EST, Patch, [facility] #[id number], Label in [place], 170, cm, 12/16/20 22:59:00 EST, Height, 47, kg, 12/10/20 16:52:00 EST, Dry Weight Start Date: 12/17/20 Status: Ordered pantoprazole 20 mg oral delayed release tablet = 20 mg, By Mouth, Daily, # 30 tablet, 0 Refills, Maintenance, 12/17/20 8:42:00 EST, EC Tablet, Label in [place], 170, cm, 12/16/20 22:59:00 EST, Height, 47, kg, 12/10/20 16:52:00 EST, Dry Weight Start Date: 12/17/20 Status: Ordered propranolol 10 mg oral tablet 10 mg, 1, tablet, By Mouth, 3 times a day, # 90 tablet, Refills 11, Tot. Refills 11, Maintenance, 12/19/20 9:10:00 EST, Route to Pharmacy Electronically, [facility] #[id number], Label in [place], 170, cm, 12/19/20 8:04:00 EST, Height, 47, kg, ... Start Date: 12/19/20 Status: Ordered Tums 500 mg oral tablet, chewable 500 mg, 1, tablet, Chew, 3 times a day, PRN, # 90 tablet, Refills 0, Tot. Refills 0, Maintenance, for control of stomach acid, 01/27/18 16:14:03 EDT, Route to Pharmacy Electronically, [id number], [facility] Start Date: 01/27/18 Status: Ordered Results Radiology Reports * Exam Date Time Procedure Performing Provider Status 12/16/22 4:[address] Head/Brain W/O Contrast Sonam Mendoza; Auth (Verified) Notes: (CT Head/Brain W/O Contrast) Reason For Exam: VICKERS;Headache(s) RESULT: CT Head/Brain W/O Contrast CT Head/Brain W/O Contrast INDICATION: Hx of Present Illness: CP ear ringing; Reason: Headache(s); VICKERS; Clinical Question(s): Hematoma; Special Instructions: Fast Track Room X5; Order Comment: TECHNIQUE: Noncontrast head CT using axial technique and reconstructed in axial and coronal planes.Iterative reconstruction techniques are used to optimize dose and image quality. CTDIvol Head: 39.41 mGy, DLP Head: 709 mGy*cm. COMPARISON: 12/12/2020 FINDINGS: Manager Meat view findings, lines and tubes: None. BRAIN AND EXTRA-AXIAL SPACES: No parenchymal hemorrhage, midline shift, or mass effect. Diaz-white matter differentiation is wellpreserved. No acute infarct. Ventricles, sulci, and basilar cisterns are normal. No white matter lesions. No subarachnoid hemorrhage. No subdural or epidural collection. CALVARIUM, SKULL BASE, AND SOFT TISSUES: No fractures or suspicious bony lesions. The paranasal sinuses and mastoid air cells are clear. Visualized orbits and globes are intact. The extracranial soft tissues are unremarkable. IMPRESSION: Normal. WSN: [id number] Ordering Physician: Reina Rosales Dictated By: John Rodriguez MD Dictated Date/Time: 12/16/22 5:02 pm Reviewed By: John Rodriguez MD Signed By: John Rodriguez MD Signed Date/Time: 12/16/22 5:02 pm Transcribed By: SHAD Transcribed Date/Time: 12/16/22 5:01 pm * Exam Date Time Procedure Performing Provider Status 12/16/22 10:58 AM Chest 2 Views Frontal and Lat Maribel Jimenez; [place] (Verified) Notes: (Chest 2 Views Frontal and Lat) Reason For Exam: Chest Pain;Other: RESULT: Chest 2 Views Frontal and Lat Chest 2 Views Frontal and Lat INDICATION: Chest pain. COMPARISON: 11/23/2020. FINDINGS: LINES AND TUBES: None. LUNGS AND PLEURA: Clear lungs. Normal pulmonary vascularity. No pleural effusion. No pneumothorax. HEART, MEDIASTINUM AND TABATHA: Heart is normal in size. Normal mediastinal and hilar contour. BONES AND SOFT TISSUES: No acute abnormality. IMPRESSION: No evidence of acute abnormality. I have personally reviewed the images and I agree with this report. WSN: [id number] Ordering Physician: Susanna Antonio Dictated By: Ousmane Malhotra MD Dictated Date/Time: 12/16/22 11:07 a Reviewed By: Nabil Pizano MD, V Signed By: Nabil Pizano MD, V Signed Date/Time: 12/16/22 11:12 am Transcribed By: SHAD Transcribed Date/Time: 12/16/22 11:02 am Vital Signs Most recent to oldest [Reference Range]: 1 2 3 Oxygen Saturation [94-100 %] 99 % (12/16/22 11:10 AM) 100 % (12/16/22 9:51 AM) 98 % (12/16/22 9:39 AM) Pulse Rate [55-90 bpm] 86 bpm (12/16/22 11:10 AM) 90 bpm (12/16/22 9:51 AM) 96 bpm *H* (12/16/22 9:39 AM) Blood Pressure [90-138/55-84 mm Hg] 123/78mm Hg (12/16/22 11:10 AM) 120/71mm Hg (12/16/22 9:51 AM) Respiratory Rate [16-30 br/min] 18 br/min (12/16/22 11:10 AM) 16 br/min (12/16/22 9:51 AM) Temperature [96.8-100.4 DegF] 99.2 DegF (12/16/22 11:10 AM) 98.0 DegF (12/16/22 9:51 AM) Mode of Delivery (Oxygen) Room air (12/16/22 11:10 AM) Room air (12/16/22 9:51 AM) Room air (12/16/22 9:39 AM) Blood pressure sites Arm, left (12/16/22 11:10 AM) Arm, left (12/16/22 9:51 AM) Temperature Route Oral (12/16/22 11:10 AM) Oral (12/16/22 9:51 AM) Social History Social History Type Response Smoking Status Never smoker entered on: 01/27/18 Sex EKG study * Event Display: ECG 12-Lead Authored Date: Please click on pdf link to open report * Event Display: ECG 12-Lead Authored Date: Ventricular Rate: 99 BPM Atrial Rate: 99 BPM P-R Interval: 128 ms QRS Duration: 86 ms Q-T Interval: 346 ms QTC Calculation(Bazett): 444 ms P [place]: 81 degrees R [place]: -52 degrees T [place]: 48 degrees Normal sinus rhythm Left axis deviation Abnormal ECG When compared with ECG of 11-DEC-2020 09:53, No significant change was found Confirmed by DANY AGUAYO ([id number]) on 12/16/2022 10:07:38 AM [place]: DAYN AGUAYO * Event Display: EKG Authored Date: Note * [facility] , CIS S: TRANSCRIBE Callao Ousmane MCDONOUGH: SIGN Jerica MCDONOUGH, Nabil V: VERIFY Event Display: Result: Authored Date: Chest 2 Views Frontal and Lat INDICATION: Chest pain. COMPARISON: 11/23/2020. FINDINGS: LINES AND TUBES: None. LUNGS AND PLEURA: Clear lungs. Normal pulmonary vascularity. No pleural effusion. No pneumothorax. HEART, MEDIASTINUM AND TABATHA: Heart is normal in size. Normal mediastinal and hilar contour. BONES AND SOFT TISSUES: No acute abnormality. IMPRESSION: No evidence of acute abnormality. I have personally reviewed the images and I agree with this report. WSN: [id number] Ordering Physician: Susanna Antonio Dictated By: Ousmane Malhotra MD Dictated Date/Time: 12/16/22 11:07 a Reviewed By: Nabil Pizano MD, V Signed By: Nabil Pizano MD, V Signed Date/Time: 12/16/22 11:12 am Transcribed By: SHAD Transcribed Date/Time: 12/16/22 11:[address] Head WO contrast * [facility] , CIS S: TRANSCRIBE John Rodriguez MD S: VERIFY Event Display: Result: Authored Date: [id number] CT Head/Brain W/O Contrast INDICATION: Hx of Present Illness: CP ear ringing; Reason: Headache(s); VICKERS; Clinical Question(s): Hematoma; Special Instructions: Fast Track Room X5; Order Comment: TECHNIQUE: Noncontrast head CT using axial technique and reconstructed in axial and coronal planes.Iterative reconstruction techniques are used to optimize dose and image quality. CTDIvol Head: 39.41 mGy, DLP Head: 709 mGy*cm. COMPARISON: 12/12/2020 FINDINGS: Manager Meat view findings, lines and tubes: None. BRAIN AND EXTRA-AXIAL SPACES: No parenchymal hemorrhage, midline shift, or mass effect. Diaz-white matter differentiation is wellpreserved. No acute infarct. Ventricles, sulci, and basilar cisterns are normal. No white matter lesions. No subarachnoid hemorrhage. No subdural or epidural collection. CALVARIUM, SKULL BASE, AND SOFT TISSUES: No fractures or suspicious bony lesions. The paranasal sinuses and mastoid air cells are clear. Visualized orbits and globes are intact. The extracranial soft tissues are unremarkable. IMPRESSION: Normal. WSN: [id number] Ordering Physician: Reina Rosales Dictated By: John Rodriguez MD Dictated Date/Time: 12/16/22 5:02 pm Reviewed By: John Rodriguez MD Signed By: John Rodriguez MD Signed Date/Time: 12/16/22 5:02 pm Transcribed By: SHAD Transcribed Date/Time: 12/16/22 5:01 pm Patient Care team information Care Team Personnel Name: Radha Walker RN Position: [facility] RN Member Role: Primary Care Nurse Name: Beau Bradford Position: [facility] Outreach Member Role: Lifetime Consulting Physician Name: Steffany Fernandez RN Position: [facility] RN Member Role: Primary Care Nurse Name: Josiane Asher RN Position: [facility] RN Supv Member Role: Primary Care Nurse Name: Hema Luke DO Position: [facility] Resident Member Role: PCP Address: Address: [address] [place] [address] Adult [place], [place] [address] Name: Tita Cummings RN Position: [facility] RN Member Role: Primary Care Nurse Name: Reina Rosales NP Position: [facility] Associate Professional Member Role: ED Physician Rn Cardiovascular Icu Address: Address: [address] [place] [address] [place] [address]- Name: Angi Amaya RN Position: [facility] ED RN W/OE and Tasks Member Role: Patient Care Provider Care Team Related Persons Name: MARIANO DAVILA Address: home [address] [place] [address] Name: JAYASHREE COBIAN
--- OUTSIDE RECORDS SUMMARY | 2023-08-15 00:03 | XMS_ITS | Continuity of Care Document ---
Author Name Unknown Organization [facility] Address [address] [place] [address]- Care Team Providers Care Documentation Coordinator Name Role Phone Hema Luke DO Primary Care Physician Encounter [facility] [place] Date(s): 12/23/22 - 01/22/23 [facility] [address], [place] [address] Allergies, Adverse Reactions, Alerts [...] 12/19/20 9:10:00 EST, Route to Pharmacy Electronically, [facility] #[id number], Label in Indian, 170, cm, 12/19/20 8:04:00 EST, Height, 47, kg, 12/10/20 16... Start Date: 12/19/20 Status: Ordered benztropine 1 mg oral tablet 0.5 mg, 0.5, tablet, By Mouth, 2 times a day, # 30 tablet, Refills 11, Tot. Refills 11, Maintenance, 12/19/20 9:11:00 EST, Route to Pharmacy Electronically, [facility] #[id number], Label in Indian, 170, cm, 12/19/20 8:04:00 EST, Height, 47, kg,... Start Date: 12/19/20 Status: Ordered Colace sodium 100 mg oral capsule 100 mg, 1, capsule, By Mouth, 2 times a day, <BELARUSIAN LABEL>, # 60 capsule, Refills 1, Tot. Refills 1, Maintenance, 12/04/20 11:40:00 EST, Route to Pharmacy Electronically, [facility]#[id number], Partial fill upon patient request if the prescrip... Start Date: 12/04/20 Status: Ordered hydrOXYzine pamoate 50 mg oral capsule 1 capsule = 50 mg, By Mouth, 2 times a day, PRN as needed for anxiety, # 40 capsule, 0 Refills, Maintenance, 12/17/20 8:40:00 EST, Capsule, [facility] #[id number], Label in Indian, 170, cm, 12/16/20 22:59:00 EST, Height, 47, kg, 12/10/20 16:52:0... Start Date: 12/17/20 Status: Ordered mirtazapine 15 mg oral tablet 0.5 tablet = 7.5 mg, By Mouth, Daily at bedtime, # 15 tablet, 11 Refills, Maintenance, 12/19/20 9:11:00 EST, Tablet, [facility] #[id number], Label in Indian, 170, cm, 12/19/20 8:04:00 EST, Height, 47, kg, 12/10/20 16:52:00 EST, Dry Weight Start Date: 12/19/20 Status: Ordered Nicoderm C-Q 7 mg/24 hr transdermal film, extended release 1 patch, Topically, Daily, # 30 patch, 0 Refills, Maintenance, 12/17/20 8:43:00 EST, Patch, [facility] #[id number], Label in Indian, 170, cm, 12/16/20 22:59:00 EST, Height, 47, kg, 12/10/20 16:52:00 EST, Dry Weight Start Date: 12/17/20 Status: Ordered pantoprazole 20 mg oral delayed release tablet = 20 mg, By Mouth, Daily, # 30 tablet, 0 Refills, Maintenance, 12/17/20 8:42:00 EST, EC Tablet, Label in Indian, 170, cm, 12/16/20 22:59:00 EST, Height, 47, kg, 12/10/20 16:52:00 EST, Dry Weight Start Date: 12/17/20 Status: Ordered propranolol 10 mg oral tablet 10 mg, 1, tablet, By Mouth, 3 times a day, # 90 tablet, Refills 11, Tot. Refills 11, Maintenance, 12/19/20 9:10:00 EST, Route to Pharmacy Electronically, [facility] #[id number], Label in Indian, 170, cm, 12/19/20 8:04:00 EST, Height, 47, kg, 02/... Start Date: 12/19/20 Status: Ordered Tums 500 mg oral tablet, chewable 500 mg, 1, tablet, Chew, 3 times a day, PRN, # 90 tablet, Refills 0, Tot. Refills 0, Maintenance, for control of stomach acid, 01/27/18 16:14:03 EDT, Route to Pharmacy Electronically, [id number], [facility] Start Date: 01/27/18 Status: Ordered Social History Social History Type Response Smoking Status Never smoker entered on: 01/27/18 Sex Patient Care team information Care Team Personnel Name: Radha Walker RN Position: S RN Member Role: Primary Care Nurse Name: Beau Bradford Position: [facility] Outreach Member Role: Lifetime Consulting Physician Name: Steffany Fernandez RN Position: S RN Member Role: Primary Care Nurse Name: Josiane Asher RN Position: [facility] RN Supv Member Role: Primary Care Nurse Name: Hema Luke DO Position: [facility] Resident Member Role: PCP Address: Address: [address] [place] [id number]- Name: Tita Cummings RN Position: S RN Member Role: Primary Care Nurse Care Team Related Persons Name: MARIANO DAVILA Address: home [address] [place] [address] Name: JAYASHREE COBIAN
--- OUTSIDE RECORDS SUMMARY | 2023-08-15 00:03 | XMS_ITS | Continuity of Care Document ---
Author Name Unknown Organization [facility] Address [address] [place] [address]- Care Team Providers Care Air Quality Chemist Name Role Phone Hema Luke DO Primary Care Physician Encounter [facility] [place] Date(s): 11/09/22 - 12/09/[address] [address] Allergies, Adverse Reactions, Alerts No Known Allergies Immunizations Not Given Vaccine Date Status Refusal Reason pneumococcal 23-valent vaccine 11/27/20 Not Given Patient Refuses influenza virus vaccine, inactivated 11/27/20 Not Given Patient Refuses Medications Abilify 15 mg oral tablet 15 mg, 1, tablet, By Mouth, Daily, # 30 tablet, Refills 11, Tot. Refills 11, Maintenance, 12/19/20 9:10:00 EST, Route to Pharmacy Electronically, [facility] #[id number], Label in Swazi, 170, cm, 12/19/20 8:04:00 EST, Height, 47, kg, 12/10/20 16... Start Date: 12/19/20 Status: Ordered benztropine 1 mg oral tablet 0.5 mg, 0.5, tablet, By Mouth, 2 times a day, # 30 tablet, Refills 11, Tot. Refills 11, Maintenance, 12/19/20 9:11:00 EST, Route to Pharmacy Electronically, [facility] #[id number], Label in Swazi, 170, cm, 12/19/20 8:04:00 EST, Height, 47, kg,... Start Date: 12/19/20 Status: Ordered Colace sodium 100 mg oral capsule 100 mg, 1, capsule, By Mouth, 2 times a day, <ROMANSH LABEL>, # 60 capsule, Refills 1, Tot. Refills 1, Maintenance, 12/04/20 11:40:00 EST, Route to Pharmacy Electronically, [facility]#[id number], Partial fill upon patient request if the prescrip... Start Date: 12/04/20 Status: Ordered hydrOXYzine pamoate 50 mg oral capsule 1 capsule = 50 mg, By Mouth, 2 times a day, PRN as needed for anxiety, # 40 capsule, 0 Refills, Maintenance, 12/17/20 8:40:00 EST, Capsule, [facility] #[id number], Label in Swazi, 170, cm, 12/16/20 22:59:00 EST, Height, 47, kg, 12/10/20 16:52:0... Start Date: 12/17/20 Status: Ordered mirtazapine 15 mg oral tablet 0.5 tablet = 7.5 mg, By Mouth, Daily at bedtime, # 15 tablet, 11 Refills, Maintenance, 12/19/20 9:11:00 EST, Tablet, [facility] #[id number], Label in Swazi, 170, cm, 12/19/20 8:04:00 EST, Height, 47, kg, 12/10/20 16:52:00 EST, Dry Weight Start Date: 12/19/20 Status: Ordered Nicoderm C-Q 7 mg/24 hr transdermal film, extended release 1 patch, Topically, Daily, # 30 patch, 0 Refills, Maintenance, 12/17/20 8:43:00 EST, Patch, [facility] #[id number], Label in Swazi, 170, cm, 12/16/20 22:59:00 [...] 12/19/20 9:10:00 EST, Route to Pharmacy Electronically, [facility] #[id number], Label in Swazi, 170, cm, 12/19/20 8:04:00 EST, Height, 47, kg, 02/... Start Date: 12/19/20 Status: Ordered Tums 500 mg oral tablet, chewable 500 mg, 1, tablet, Chew, 3 times a day, PRN, # 90 tablet, Refills 0, Tot. Refills 0, Maintenance, for control of stomach acid, 01/27/18 16:14:03 EDT, Route to Pharmacy Electronically, [id number], [facility] Start Date: 01/27/18 Status: Ordered Social History Social History Type Response Smoking Status Never smoker entered on: 01/27/18 Sex Patient Care team information Care Team Personnel Name: Radha Walker RN Position: [facility] RN Member Role: Primary Care Nurse Name: Beau Bradford Position: [facility] Outreach Member Role: Lifetime Consulting Physician Name: Steffany Fernandez RN Position: S RN Member Role: Primary Care Nurse Name: Josiane Asher RN Position: [facility] RN Supv Member Role: Primary Care Nurse Name: Hema Luke DO Position: [facility] Resident Member Role: PCP Address: Address: [address] [place] [id number]- Name: Tita Cummings RN Position: S RN Member Role: Primary Care Nurse Care Team Related Persons Name: MARIANO DAVILA Address: home [address] [place] [address] Name: JAYASHREE COBIAN
--- OUTSIDE RECORDS SUMMARY | 2023-08-15 00:03 | XMS_ITS | Continuity of Care Document ---
Author Name Unknown Organization [facility] Address [address] [place] [address]- Care Team Providers Care Lead Fabricator Name Role Phone Hema Luke DO Primary Care Physician [phone] Encounter [facility] [place] Date(s): 02/09/23 - 03/11/23 [facility] [address] [place], [place] [address] Allergies, Adverse Reactions, Alerts No Known Allergies Immunizations Not Given Vaccine Date Status Refusal Reason pneumococcal 23-valent vaccine 11/27/20 Not Given Patient Refuses influenza virus vaccine, inactivated 11/27/20 Not Given Patient Refuses Medications Abilify 15 mg oral tablet 15 mg, 1, tablet, By Mouth, Daily, # 30 tablet, Refills 11, Tot. Refills 11, Maintenance, 12/19/20 9:10:00 EST, Route to Pharmacy Electronically, [facility] #[id number], Label in Malian, 170, cm, 12/19/20 8:04:00 EST, Height, 47, kg, 12/10/20 16... Start Date: 12/19/20 Status: Ordered benztropine 1 mg oral tablet 0.5 mg, 0.5, tablet, By Mouth, 2 times a day, # 30 tablet, Refills 11, Tot. Refills 11, Maintenance, 12/19/20 9:11:00 EST, Route to Pharmacy Electronically, [facility] #[id number], Label in Malian, 170, cm, 12/19/20 8:04:00 EST, Height, 47, kg,... Start Date: 12/19/20 Status: Ordered Colace sodium 100 mg oral capsule 100 mg, 1, capsule, By Mouth, 2 times a day, <SERBIAN LABEL>, # 60 capsule, Refills 1, Tot. Refills 1, Maintenance, 12/04/20 11:40:00 EST, Route to Pharmacy Electronically, [facility]#[id number], Partial fill upon patient request if the prescrip... Start Date: 12/04/20 Status: Ordered hydrOXYzine pamoate 50 mg oral capsule 1 capsule = 50 mg, By Mouth, 2 times a day, PRN as needed for anxiety, # 40 capsule, 0 Refills, Maintenance, 12/17/20 8:40:00 EST, Capsule, [facility] #[id number], Label in Malian, 170, cm, 12/16/20 22:59:00 EST, Height, 47, kg, 12/10/20 16:52:0... Start Date: 12/17/20 Status: Ordered mirtazapine 15 mg oral tablet 0.5 tablet = 7.5 mg, By Mouth, Daily at bedtime, # 15 tablet, 11 Refills, Maintenance, 12/19/20 9:11:00 EST, Tablet, [facility] #[id number], Label in Malian, 170, cm, 12/19/20 8:04:00 EST, Height, 47, kg, 12/10/20 16:52:00 EST, Dry Weight Start Date: 12/19/20 Status: Ordered Nicoderm C-Q 7 mg/24 hr transdermal film, extended release 1 patch, Topically, Daily, # 30 patch, 0 Refills, Maintenance, 12/17/20 8:43:00 EST, Patch, [facility] #[id number], Label in Malian, 170, cm, 12/16/20 22:59:00 EST, Height, 47, kg, 12/10/20 16:52:00 EST, Dry Weight Start Date: 12/17/20 Status: Ordered pantoprazole 20 mg oral delayed release tablet = 20 mg, By Mouth, Daily, # 30 tablet, 0 Refills, Maintenance, 12/17/20 8:42:00 EST, EC Tablet, Label in Malian, 170, cm, 12/16/20 22:59:00 EST, Height, 47, kg, 12/10/20 16:52:00 EST, Dry Weight Start Date: 12/17/20 Status: Ordered propranolol 10 mg oral tablet 10 mg, 1, tablet, By Mouth, 3 times a day, # 90 tablet, Refills 11, Tot. Refills 11, Maintenance, 12/19/20 9:10:00 EST, Route to Pharmacy Electronically, [facility] #[id number], Label in Malian, 170, cm, 12/19/20 8:04:00 EST, Height, 47, kg, 02/... Start Date: 12/19/20 Status: Ordered Tums 500 mg oral tablet, chewable 500 mg, 1, tablet, Chew, 3 times a day, PRN, # 90 tablet, Refills 0, Tot. Refills 0, Maintenance, for control of stomach acid, 01/27/18 16:14:03 EDT, Route to Pharmacy Electronically, [id number], [facility] Start Date: 01/27/18 Status: Ordered Social History Social History Type Response Smoking Status Never smoker entered on: 01/27/18 Sex Patient Care team information Care Team Personnel Name: Radha Walker RN Position: [facility] RN Member Role: Primary Care Nurse Name: Beau Bradford Position: [facility] Outreach Member Role: Lifetime Consulting Physician Name: Steffany Fernandez RN Position: [facility] RN Member Role: Primary Care Nurse Name: Josiane Asher RN Position: [facility] RN Supv Member Role: Primary Care Nurse Name: Hema Luke DO Position: [facility] Resident Member Role: PCP Address: Address: [address] [place] [id number]- Care Team Related Persons Name: MARIANO DAVILA Address: home [address] [place] [address] Name: JAYASHREE COBIAN
--- NOTE | 2023-08-15 00:41 | ED.GENADULT ---
HPI - General Adult General Chief complaint: General Medical Stated complaint: flu like symptoms Time Seen by Provider: 08/15/23 00:11 Source: patient Mode of arrival: ambulatory Limitations: no limitations History of Present Illness HPI narrative: Patient is a 33-year-old male presents emergency department for evaluation of multiple complaints. For the past couple days he has been experiencing a nonproductive cough, headache and fatigue. Reports sick contacts recently. Denies vision changes dizziness, lightheadedness, neck pain, except chest pain, shortness of breath, nausea, vomiting, abdominal pain, diarrhea, constipation,. Additionally he expresses concern about an abscess to his body, states he was seen here 1.5 months ago for the same, he was placed on an oral antibiotic, he states that after couple of days this site opened and had drainage that he stopped taking the antibiotics, and has now returned. Related Data Previous Rx's Medication Instructions Recorded cephalexin 500 mg capsule 500 mg PO QID 7 days #28 caps 07/06/23 ibuprofen 600 mg tablet 600 mg PO Q6H PRN pain #30 tabs 07/06/23 cephalexin 500 mg capsule 500 mg PO QID #28 caps 08/15/23 Allergies Allergy/AdvReac Type Severity Reaction Status Date / Time No Known Allergies Allergy Verified 07/06/23 08:35 [No Known Allergies*] Review of Systems Review of Systems: Yes all other systems are reviewed and are negative PMFSH Past Medical History Attestation statement: The following information was validated with the patient. Source: old records reviewed Medical History No pertinent past medical history Social History Social History (Updated 07/06/23 @ 09:43 by Kath Claudio DO) Alcohol intake: current Alcohol intake frequency: holidays/special occasions only Alcohol type: beer and hard liquor Patient Tobacco Use Status: Never used Tobacco Smoked in Last 30 Days: Yes Use of substances other than those prescribed or required for medical reasons: Yes Substance Use Type: Marijuana Substance Use Frequency: Daily Advance Directives: No Advance Directives Information Provided: Yes Physical Exam ED Vital Signs: Vital Signs - 24 hr 08/14/23 23:49 Temperature 98.6 F Pulse Rate 90 Respiratory Rate 16 Blood Pressure 125/85 Pulse Oximetry 98 Oxygen Delivery Method Room Air BMI result Body Mass Index 24.6 Appearance: Alert.?Oriented to person, place and time. No acute distress.?Normal affect. Eyes: Pupils equal, round and reactive to light.? ENT: Pharynx normal.??TM normal bilaterally. Neck: Normal inspection.? Neck supple.??No cervical lymphadenopathy CVS: Heart sounds normal. Normal heart rate and rhythm.? Pulses normal.?? Respiratory: No respiratory distress.? Lung sounds clear to auscultation bilaterally?? Abdomen: Soft and non-tender. Normoactive bowel sounds. Rectal: Performed with extruding press operator; ED cardiopulmonary technician and eeg tech Oh, left buttock with a small 1 cm abscess without cellulitis or extension to perirectal area, nonfluctuant, area is indurated at this time, Skin: Skin warm and dry.? Normal skin color.? Normal skin turgor.?? Extremities: No lower extremity edema.? No calf ttp? Neuro: Moves all extremities spontaneously. Sensation intact bilaterally. CN II-XII intact. No focal neuro deficits. Ambulates with normal steady gait. Medical Decision Making Medical Decision Making MDM Narrative: Patient is a 33-year-old male who presents emergency department for evaluation of viral symptoms, overall he is well-appearing, nontoxic, afebrile, no respiratory distress, no hypoxia or tachypnea. Viral testing for COVID-19, influenza, RSV are negative. History and physical examination is not consistent with pneumonia, chest x-ray imaging was deferred. I suspect likely a viral upper respiratory infection given recent ill contacts. Discussed conservative treatment and worrisome signs and symptoms that would warrant re-evaluation. He also has a 1 cm abscess to the left buttock, without cellulitis or extension to the lou rectal region there is no central fluctuance areas indurated, no indication for incision and drainage at this time. Discussed completing the entire course of antibiotics as prescribed this time, Sitz baths, worrisome signs and symptoms that would warrant re-evaluation. Advised that if persistent recurrence he may need outpatient follow-up with general surgery for further management. At this time he is stable for discharge home. ? Differential Diagnosis Differential Diagnoses: The differential diagnosis associated with the presentation includes (As noted above) Admission/Observation Consideration of admission/observation: Escalation of care including admission/observation considered (Nontoxic, tolerating oral antibiotics) Lab Data MDM Lab Attestation statement: I reviewed the patient's lab results. (As noted above) Labs: Lab Results 08/15/23 Range/Units 00:07 Influenza Type A (PCR) NEGATIVE (Negative) Influenza Type B (PCR) NEGATIVE (Negative) RSV RNA Qual (PCR) NEGATIVE (Negative) SARS-CoV-2 RNA (RT-PCR) NEGATIVE (Negative) Prescription Management I considered prescription management with: Antibiotic Discharge Plan Discharge Clinical Impression: Acute upper respiratory infection, Cellulitis of buttock, left Patient Disposition: Home, Self-Care Instructions: Cellulitis (ED), Upper Respiratory Infection (ED) Additional Instructions: Be sure to rest, stay well hydrated drinking plenty of fluids, eat small frequent meals. Tylenol/ibuprofen can be used as needed for fever/pain. Usrv-vfr-zuyunvu cold medications may be helpful as well for symptoms. Saline nasal spray, humidifier may be helpful for nasal congestion. You may return to the emergency department with any new or worsening symptoms or concerns. Follow-up with your primary care provider as needed. Should remain out of school/ work until symptoms have resolved and have been without a fever for 24 hours without the use of Tylenol or ibuprofen. Regarding the lump to your buttock, there is a small abscess present, at this time there is no indication for drainage, please to complete the entire course of antibiotics as prescribed, even if your symptoms are improving or you have any drainage coming from this I you should still complete the entire course of antibiotics. You may return back to emergency department any new or worsening symptoms or concerns. Prescriptions: New cephalexin 500 mg capsule 500 mg PO QID Qty: 28 0RF No Action cephalexin 500 mg capsule 500 mg PO QID 7 Days Qty: 28 0RF ibuprofen 600 mg tablet 600 mg PO Q6H PRN (Reason: pain) Qty: 30 0RF Stand Alone Forms: Work/School Release
[2023-08-15 00:56] LABS: Influenza A PCR NEGATIVE (Negative); Influenza B PCR NEGATIVE (Negative); Resp Syncy Virus RNA Qual PCR NEGATIVE (Negative); SARS COV2 PCR INHOUSE NEGATIVE (Negative)
[2023-08-15 01:11] VITALS: BP 112/71; PULSE 85; RESP 16; TEMP 36.7; O2SAT 99
--- NOTE | 2023-08-15 01:12 | PC.NURSE ---
Pt a&o, no sob or chest pain, reviewed discharge instruction with pt. pt verbalized understanding. Notified RN Arina.
== END 2023-08-15 01:23 | disposition home or self-care (01) ==
PROVIDERS: Emergency Provider Internal Medicine
DX: J06.9 Acute upper respiratory infection, unspecified (principal); L03.317 Cellulitis of buttock; R05.9 Cough, unspecified; R51.9 Headache, unspecified; R53.83 Other fatigue; Z20.822 Contact with and (suspected) exposure to COVID-19; Z20.828 Contact with and (suspected) exposure to other viral communicable diseases
CPT/HCPCS: 0241U; 99283; 99284

== ENCOUNTER 2023-09-12 02:44 | Emergency (ER) | payer MEDICAID, SELFPAY ==
--- NOTE | 2023-09-12 | ECG_ITS ---
Test Reason : CP Blood Pressure : / mmHG Vent. Rate : 097 BPM Atrial Rate : 097 BPM P-R Int : 134 ms QRS Dur : 084 ms QT Int : 358 ms P-R-T Axes : 087 -26 045 degrees QTc Int : 454 ms Normal sinus rhythm RSR' or QR pattern in V1 suggests right ventricular conduction delay Left axis deviation Abnormal ECG When compared with ECG of 15-OCT-2018 13:51, No significant change was found Referred By: Generic ED Physician Electronically Signed By:CIELO POLO MD
--- OUTSIDE RECORDS SUMMARY | 2023-09-12 03:10 | XMS_ITS | Continuity of Care Document ---
Author Name Unknown Organization [facility] Address [address] [place] [address]- Care Team Providers Care Research Chemical Engineer Name Role Phone Not on Staff, PCP Primary Care Physician Unavail able [place] [facility] [place]s): 08/03/23 - 09/02/23 [facility] [address] [place], [place] [address] Attending Physician: Kaycee Bell Admitting Physician: Kaycee Bell Referring Physician: AdmtrKaycee Medications albuterol CFC free 90 mcg/inh inhalation aerosol 2, puffs, Inhalation, 4 times a day, PRN, # 18 Gm, Refills 0, Tot. Refills 0, Maintenance, 08/03/2314:51:00 EDT, Aerosol, Route to Pharmacy Electronically, [id number], [id number] Start Date: 08/03/23 Status: Ordered fluticasone 50 mcg/inh nasal spray 1 sprays, Nares, Both, 2 times a day, # 16 Gm, 0 Refills, Maintenance, 08/03/23 14:51:00 EDT, [place], [id number], Partial fill upon patient request if the prescription is for a schedule II opioid drug., 1 sprays Nares, Both 2 times a day Start Date: 08/03/23 Status: Ordered Problem List Condition Confirmation Course Effective Dates Status [facility] Informant Asthma Confirmed Active Patient Care team information Care Team Personnel Name: Not on Staff, PCP Position: [facility] Physician (General Medicine) Member Role: PCP
[2023-09-12 03:14] LABS: Basophils Percent Auto 0.2 % (0-2); Eosinophils Absolute Auto 0.2 X10*3/uL (0.0-0.4); Eosinophils Percent Auto 1.7 % (0-4); Hematocrit 37.9 % (42.0-52.0); Hemoglobin 12.5 g/dl (14.0-18.0); Imm Gran Abs Auto 0.03 X10*3/uL (0.00-0.03); Imm Gran Pct Auto 0.3 % (0.0-0.4); Lymphocytes Absolute Auto 3.2 X10*3/uL (1.2-4.9); Lymphocytes Percent Auto 34.7 % (20-40); MANUAL DIFF FLAG NO; Mean Corpuscular Hemoglobin 32.9 pg (27.0-33.0); Mean Corpuscular Volume 99.7 fL (80.0-98.0); Mean Platelet Volume 9.1 fL (9.4-12.4); Monocytes Percent Auto 10.3 % (2-11); Neutrophils Absolute Auto 4.9 x10*3/uL (2.0-8.3); Neutrophils Percent Auto 52.8 % (45-73); Platelet Count 284 X10*3/uL (160-400); Red Cell Distribution Width 13.6 % (11.0-16.0); White Blood Count 9.3 X10*3/uL (4.8-10.8)
[2023-09-12 03:17] VITALS: BP 117/66; PULSE 92; RESP 20; TEMP 36.5; O2SAT 97; BMI 20.8
[2023-09-12 03:27] LABS: Alanine Aminotransferase 27 U/L (0-40); Alkaline Phosphatase 62 U/L (39-117); Anion Gap 12 (12-20); Aspartate Amino Transferase 31 U/L (5-37); Bilirubin Direct 0.1 mg/dL (0.0-0.5); Bilirubin Total 0.4 mg/dL (0.0-1.0); Blood Urea Nitrogen 13 mg/dL (9-16); Carbon Dioxide 24 mmol/L (22-29); Chloride 105 mmol/L (96-108); Creatinine Clr Calc Pharmacy 107.9; Estimated Glomerular Filt Rate > 60; Glucose Random 96 mg/dL (60-115); Lipase 24 U/L (8-78); Potassium 3.6 mmol/L (3.3-5.1); Sodium 137 mmol/L (135-145); Total Protein 6.8 g/dL (6.5-8.0)
[2023-09-12 03:36] LABS: Troponin-I High Sensitivity < 2.7 ng/L (<3.5-35.0)
--- NOTE | 2023-09-12 04:20 | ED_ITS ---
HPI - General Adult General Chief complaint: General Medical Stated complaint: chest pain, sore throat, ear pain, headache Time Seen by Provider: 09/12/23 04:20 Source: patient Mode of arrival: ambulatory Limitations: language barrier (Insert 1st language is French, he speaks some Mozambican, recording artist was used) History of Present Illness HPI narrative: 33-year-old male with history of depression and anxiety who presents emergency department for evaluation of bilateral ear pain left greater than right, sore throat, headache, chest pain and productive cough. Patient states he has been sick for 2 days. He states that he has a cough which is productive of thick yellow sputum with no blood in the sputum. He is complaining of left-sided chest pain which is worse with coughing and breathing. He does have shortness of breath and dyspnea on exertion. States that also has been headaches, weakness and fatigue. Related Data Previous Rx's Medication Instructions Recorded cephalexin 500 mg capsule 500 mg PO QID 7 days #28 caps 07/06/23 ibuprofen 600 mg tablet 600 mg PO Q6H PRN pain #30 tabs 07/06/23 cephalexin 500 mg capsule 500 mg PO QID #28 caps 08/15/23 amoxicillin 500 mg tablet 1,000 mg (2 x 500 mg) PO Q12H 7 09/12/23 days #28 tabs ibuprofen 400 mg tablet 400 mg PO TID PRN fever or pain 09/12/23 #30 tabs Allergies Allergy/AdvReac Type Severity Reaction Status Date / Time No Known Allergies Allergy Verified 09/12/23 03:17 [No Known Allergies*] Review of Systems 2 Review of Systems: Yes all other systems are reviewed and are negative [facility] Past Medical History [facility] Narrative: Social history: He does smoke 10 cigarettes per day times many years. He denies alcohol use. He denies drug use Medical History No pertinent past medical history Social History Alcohol intake: current Alcohol intake frequency: holidays/special occasions only Alcohol type: beer and hard liquor Patient Tobacco Use Status: Never used Tobacco Substance Use Type: Marijuana Advance Directives: No Physical Exam ED Vital Signs: Vital Signs - 24 hr 09/12/23 03:17 Temperature 97.7 F Pulse Rate 92 Respiratory Rate 20 Blood Pressure 117/66 Pulse Oximetry 97 Oxygen Delivery Method Room Air BMI result Body Mass Index 20.8 Vital signs were normal Exam General: Awake, alert in no distress Head: Normocephalic, atraumatic EENT: PERRL, Lids normal, sclera normal, conjunctiva normal, nose normal , ears normal, tympanic membranes normal external auditory canal tenderness or cerumen impaction, throat without erythema or exudates Neck: Supple, no adenopathy, no trachea midline or C-spine tenderness Lung: breath sounds symmetric, no wheezing, rales or rhonchi Chest: symmetric movement, moderate left-sided chest wall tenderness Heart: regular rate and rhythm, normal S1, S2 no murmurs or rubs Abdomen: soft, non-tender, nondistended, normal bowel sounds Back: no vertebral tenderness, no CVAT Extremities: no deformities, moves all extremities symmetrically Neuro: Awake, alert, oriented, normal speech, moves all extremities symmetrically Psych: Pleasant, cooperative Medical Decision Making Medical Decision Making [facility] Narrative: 33-year-old male with history of depression and anxiety who presents emergency department for evaluation of bilateral ear pain left greater than right, sore throat, headache, chest pain and productive cough x2 days. Patient's vital signs were normal. Exam did reveal left-sided chest wall tenderness otherwise was unremarkable. Following evaluation was ordered: 12 EKG CBC, CMP, troponin 04:43 Patient's 12 EKG was unremarkable pain Blood work was unremarkable pain Patient's presentation and exam is consistent with acute bronchitis. Patient was treated with amoxicillin 1000 mg orally and ibuprofen 400 mg orally Patient was prescribed amoxicillin 500 mg q.12 hours for 7 days and ibuprofen 40 mg every 6 hours as needed for pain. He was given printed and verbal instructions and discharged home He was given a work note as well pain Differential Diagnosis Differential Diagnoses: The differential diagnosis associated with the presentation includes Differential diagnosis includes was not limited to pneumonia, bronchitis, viral syndrome, otitis media Admission/Observation Consideration of admission/observation: Escalation of care including admission/observation considered Lab Data [facility] Lab Attestation statement: I reviewed the patient's lab results. My interpretation patient's laboratory evaluation is as follows: I have and 37.9 with an MCV of 99.7. White blood cell count was normal 9300. CMP was normal. High sensitive troponin I was below detectable limits. 09/12/23 03:05 09/12/23 03:05 Labs: Lab Results 09/12/23 Range/Units 03:05 WBC 9.3 (4.8-10.8) X10*3/uL RBC 3.80 L (4.60-5.80) X10*6/uL Hgb 12.5 L (14.0-18.0) g/dl Hct 37.9 L (42.0-52.0) % MCV 99.7 H (80.0-98.0) fL MCH 32.9 (27.0-33.0) pg MCHC 33.0 (31.0-36.0) g/dl RDW 13.6 (11.0-16.0) % Plt Count 284 (160-400) X10*3/uL MPV 9.1 L (9.4-12.4) fL Immature Gran % (Auto) 0.3 (0.0-0.4) % Neut % (Auto) 52.8 (45-73) % Lymph % (Auto) 34.7 (20-40) % Dade % (Auto) 10.3 (2-11) % Eos % (Auto) 1.7 (0-4) % Baso % (Auto) 0.2 (0-2) % Lymph # (Auto) 3.2 (1.2-4.9) X10*3/uL Dade # (Auto) 1.0 (0.1-1.2) X10*3/uL Eos # (Auto) 0.2 (0.0-0.4) X10*3/uL Baso # (Auto) 0.0 (0.0-0.2) X10*3/uL Abs Immat Gran (auto) 0.03 (0.00-0.03) X10*3/uL Absolute Neuts (auto) 4.9 (2.0-8.3) x10*3/uL Absolute Nucleated RBC 0.000 (0.0-0.012) X10*3/uL Nucleated RBC % (auto) 0.0 (0.0-0.2) /100WBC Sodium 137 (135-145) mmol/L Potassium 3.6 (3.3-5.1) mmol/L Chloride 105 (96-108) mmol/L Carbon Dioxide 24 (22-29) mmol/L Anion Gap 12 (12-20) BUN 13 (9-16) mg/dL Creatinine 0.83 (0.5-1.4) mg/dL Estim Creat Clear Calc 107.9 Estimated GFR > 60 Random Glucose 96 (60-115) mg/dL Calcium 9.0 (8.4-10.2) mg/dL Total Bilirubin 0.4 (0.0-1.0) mg/dL Direct Bilirubin 0.1 (0.0-0.5) mg/dL AST 31 (5-37) U/L ALT 27 (0-40) U/L Alkaline Phosphatase 62 (39-117) U/L Troponin I High Sens < 2.7 (<3.5-35.0) ng/L Total Protein 6.8 (6.5-8.0) g/dL Albumin 4.0 (3.5-5.0) g/dL Lipase 24 (8-78) U/L Independent Interpretation I performed an independent interpretation of an: EKG Interpretation: My interpretation patient's 12 EKG done at 02:53 hours is as follows sinus rhythm with a rate of 97, normal LA interval, QRS duration QTC interval, no ST segment elevation, no ST segment depression, peaked T-waves V1 through V6, no PACs, no PVCs-no old EKG for comparison Discharge Plan Discharge Clinical Impression: Acute bronchitis Qualifiers: Bronchitis organism: other organism Qualified Code(s): J20.8 - Acute bronchitis due to other specified organisms Chest pain Qualifiers: Chest pain type: unspecified Qualified Code(s): R07.9 - Chest pain, unspecified Patient Disposition: Home, Self-Care Instructions: Acute Bronchitis (ED) Additional Instructions: Your EKG was unremarkable. Your blood work was normal. Your symptoms are consistent with bronchitis Take amoxicillin 500 mg pills, 2 pills every 12 hours for 7 days Take ibuprofen or 400 mg pills,1 pills every 6 hours as needed for pain or fever. Follow-up with your doctor in 2 days. Please return to the emergency department if your symptoms get worse or if you develop any symptoms that are concerning to you. Prescriptions: New amoxicillin 500 mg tablet 1,000 mg PO Q12H 7 Days Qty: 28 0RF ibuprofen 400 mg tablet 400 mg PO TID PRN (Reason: fever or pain) Qty: 30 0RF No Action cephalexin 500 mg capsule 500 mg PO QID 7 Days Qty: 28 0RF ibuprofen 600 mg tablet 600 mg PO Q6H PRN (Reason: pain) Qty: 30 0RF cephalexin 500 mg capsule 500 mg PO QID Qty: 28 0RF Stand Alone Forms: Work/School Release Print Language: Mozambican
[2023-09-12] MEDS: Ibuprofen 400 MG TABLET PO (04:51)
[2023-09-12] MEDS: Amoxicillin 500 MG CAPSULE 1000 MG PO (04:51)
[2023-09-12 04:53] VITALS: BP 115/67; PULSE 98; RESP 16; O2SAT 95
== END 2023-09-12 04:58 | disposition home or self-care (01) ==
PROVIDERS: Emergency Provider Emergency Medicine Emergency Medical Services
DX: J20.8 Acute bronchitis due to other specified organisms (principal); R07.9 Chest pain, unspecified; H92.03 Otalgia, bilateral
CPT/HCPCS: 36415; 80048; 80076; 83690; 84484; 85025; 93005; 99284

== ENCOUNTER 2023-10-19 09:11 | Emergency (ER) | payer MEDICAID, SELFPAY ==
[2023-10-19 09:20] VITALS: BP 121/77; PULSE 97; RESP 18; TEMP 36.3; O2SAT 98; BMI 21.6
--- NOTE | 2023-10-19 10:55 | ED.GENADULT ---
HPI - General Adult General Chief complaint: Upper Respiratory Symptoms Stated complaint: Body Pain All Over Time Seen by Provider: 10/19/23 10:55 Source: patient Mode of arrival: ambulatory Limitations: no limitations History of Present Illness HPI narrative: This is a 33-year-old male presenting fatigue, malaise, myalgias, sore throat, dry cough, headache, nausea, diarrhea, chest tightness for the past 2 days. Reports sick contacts at home with similar symptoms. Denies shortness of breath, vomiting, abdominal pain, vision changes, dizziness, weakness. Related Data Previous Rx's Medication Instructions Recorded cephalexin 500 mg capsule 500 mg PO QID 7 days #28 caps 07/06/23 ibuprofen 600 mg tablet 600 mg PO Q6H PRN pain #30 tabs 07/06/23 cephalexin 500 mg capsule 500 mg PO QID #28 caps 08/15/23 amoxicillin 500 mg tablet 1,000 mg (2 x 500 mg) PO Q12H 7 09/12/23 days #28 tabs ibuprofen 400 mg tablet 400 mg PO TID PRN fever or pain 09/12/23 #30 tabs acetaminophen 325 mg capsule 325 mg PO Q4H PRN pain #30 caps 10/19/23 (Tylenol) amoxicillin 875 mg-potassium 1 tab PO BID 10 days #20 tabs 10/19/23 clavulanate 125 mg tablet Allergies Allergy/AdvReac Type Severity Reaction Status Date / Time No Known Allergies Allergy Verified 10/19/23 09:22 [No Known Allergies*] Review of Systems Review of Systems: Constitutional : No Weight loss, + Fever, + Chills, + Fatigue, + Malaise ENT/Mouth : + sore throat, No Rhinorrhea Eyes: No Eye Pain, No Swelling, No Redness Cardiovascular : No Chest Pain, No SOB, No Dyspnea on Exertion, No Orthopnea, No Edema, No Palpitations Respiratory : No Cough, No Sputum, No Wheezing Gastrointestinal : No Nausea, No Vomiting, No Diarrhea, No Constipation, No abdominal Pain, No Hematochezia, No Melena Genitourinary : No Dysuria, No Urinary Frequency, No Hematuria, Musculoskeletal : No joint pain, + Myalgias, No Joint Swelling Skin : No Skin Lesions, No rash Neuro : No Weakness, No Numbness, No Dizziness, + Headache Psych : No Anxiety/Panic, No Depression All other systems reviewed and are negative Yes all other systems are reviewed and are negative [facility] Past Medical History Attestation statement: The following information was validated with the patient. Source: old records reviewed and nursing notes reviewed Onset Date is defined in the Problem List Problems that require an onset date and time if occurred within 24 hrs of arrival to the ED Aortic Dissection and Rupture; Neurologic impairment; Cardiopulmonary Arrest; Endotracheal Intubation; Insertion or Replacement of Mechanical Circulatory Assist Device Medical History No pertinent past medical history Social History Social History Alcohol intake: never Patient Tobacco Use Status: Never used Tobacco Substance Use Type: Marijuana Physical Exam ED Vital Signs: Vital Signs - 24 hr 10/19/23 09:20 Temperature 97.3 F Pulse Rate 97 Respiratory Rate 18 Blood Pressure 121/77 Pulse Oximetry 98 Oxygen Delivery Method Room Air BMI result Body Mass Index 21.6 vss Appearance: Alert.? Oriented X3.? No acute distress.? Head: Normocephalic, atraumatic, no step-offs or deformities Eyes: Pupils equal, round and reactive to light.? ENT: Pharynx posterior pharynx with erythema, no edema, midline uvula, no abscess or exudate, speaking in full sentences controlling secretions well. Neck: Normal inspection.? Neck supple.? CVS: Normal heart rate and rhythm.? Pulses normal.? Respiratory: No respiratory distress.? Breath sounds normal.? Abdomen: Soft and nontender.? Skin: Skin warm and dry.? Normal skin color.? Normal skin turgor.? Extremities: No lower extremity edema.? No calf ttp. 5/5 strength to bilateral upper and lower extremities Neuro: Oriented X 3.? No motor deficit.? No sensory deficit. CN 2-12 intact . Normal [id number], [id number], ambulatory with steady gait normal coordination Course Reevaluation(s) Reevaluation #1: Chest x-ray unremarkable. Flu, COVID, RSV pending. Strep positive. Will discharge patient with Augmentin. Educated patient on diagnosis and treatment plan, answered all question, patient verbalizes understanding. At this time patient will be discharged home, advised to return with new or worsening symptoms. Educated on worrisome signs and symptoms and when to return. At this time I feel comfortable discharge home. Time: 10:58 Medical Decision Making Medical Decision Making [facility] Narrative: 1056 33-year-old male presents with viral symptoms for the past 2 days. Known sick contacts with similar symptoms Physical exam with posterior pharynx with erythema, no edema, midline uvula, no abscess or exudate, speaking in full sentences controlling secretions well. Lungs clear. Regular rate and rhythm. Likely viral illness versus flu versus COVID versus RSV. Will rule out strep throat. Unlikely retropharyngeal abscess, peritonsillar abscess, epiglottitis, threat to airway. Unlikely ACS, PE, pneumonia, acute respiratory distress Plan viral testing Differential Diagnosis Differential Diagnoses: The differential diagnosis associated with the presentation includes Likely viral illness versus flu versus COVID versus RSV. Will rule out strep throat. Unlikely retropharyngeal abscess, peritonsillar abscess, epiglottitis, threat to airway. Unlikely ACS, PE, pneumonia, acute respiratory distress Admission/Observation Consideration of admission/observation: Escalation of care including admission/observation considered unlikely Lab Data [facility] Lab Attestation statement: I reviewed the patient's lab results. Labs: Lab Results 10/19/23 Range/Units 10:20 S. pyogenes GrpA KAMERON Positive A (Negative) Independent Interpretation I performed an independent interpretation of an: Plain X-Ray (XR/XR chest 2V IMPRESSION: No acute cardiopulmonary disease. ) Radiology Impression Discussion of test interpretation with radiology: I have reviewed the radiologist's reading. Prescription Management I considered prescription management with: Antibiotic Critical Care Time Critical Care Time Critical Care Time: No Discharge Plan Discharge Clinical Impression: Viral infection, Strep throat Patient Disposition: Home, Self-Care Instructions: Strep Throat (DC), Viral Syndrome (ED) Additional Instructions: Take your medications as prescribed. If you were prescribed antibiotics today, it is important that you take your medication to their entirety, do not skip any doses, do not finish them early. Follow-up with your primary care provider this week. Return to the emergency department with new or worsening symptoms. Such as fevers, chills, chest pain, shortness of breath, nausea, vomiting, dizziness, headache, vision changes, lethargy In case of emergency call 911 Prescriptions: New amoxicillin-pot clavulanate 875-125 mg tablet 1 tab PO BID 10 Days Qty: 20 0RF acetaminophen [Tylenol] 325 mg capsule 325 mg PO Q4H PRN (Reason: pain) Qty: 30 0RF No Action cephalexin 500 mg capsule 500 mg PO QID 7 Days Qty: 28 0RF ibuprofen 600 mg tablet 600 mg PO Q6H PRN (Reason: pain) Qty: 30 0RF cephalexin 500 mg capsule 500 mg PO QID Qty: 28 0RF amoxicillin 500 mg tablet 1,000 mg PO Q12H 7 Days Qty: 28 0RF ibuprofen 400 mg tablet 400 mg PO TID PRN (Reason: fever or pain) Qty: 30 0RF Referrals: Physician,None [Primary Care Provider] - 2 days Stand Alone Forms: Work/School Release
--- NOTE | 2023-10-19 11:11 | PC.NURSE ---
patient a&ox3, ambulating independently, + strep, vss, pt to be discharged.
== END 2023-10-19 11:12 | disposition home or self-care (01) ==
LOC: HO.ED 11:04
PROVIDERS: Emergency Provider Emergency Medicine
DX: J02.0 Streptococcal pharyngitis (principal); B34.9 Viral infection, unspecified; R05.9 Cough, unspecified; J02.9 Acute pharyngitis, unspecified; R51.9 Headache, unspecified; R19.7 Diarrhea, unspecified; R11.0 Nausea; Z20.822 Contact with and (suspected) exposure to COVID-19; Z20.828 Contact with and (suspected) exposure to other viral communicable diseases
CPT/HCPCS: 0241U; 71046; 87651; 99282; 99283

== ENCOUNTER 2023-11-06 11:16 | Emergency (ER) | payer MEDICAID, SELFPAY ==
--- NOTE | ~2023-11-06 | XR_ITS ---
EXAMINATION: XR CHEST CLINICAL INFORMATION: Chest pain COMPARISON: Chest x-ray October 19, 2023 TECHNIQUE: 2 views of the chest were obtained. FINDINGS: No significant abnormality is noted involving the heart, lungs, mediastinum, bony thorax or soft tissues. XR/XR chest 2V IMPRESSION: Unremarkable examination.
--- NOTE | 2023-11-06 11:28 | ECG_ITS ---
Test Reason : CHEST PAIN Blood Pressure : / mmHG Vent. Rate : 102 BPM Atrial Rate : 102 BPM P-R Int : 124 ms QRS Dur : 084 ms QT Int : 330 ms P-R-T Axes : 090 -53 046 degrees QTc Int : 430 ms Sinus tachycardia Left axis deviation Abnormal ECG When compared to the previous EKG of No significant changes seen Referred By: Nancy Mayers Electronically Signed By:Lawson De Leon
[2023-11-06 11:37] VITALS: BP 126/78; PULSE 105; RESP 16; TEMP 36.9; O2SAT 98; BMI 21.6
--- NOTE | 2023-11-06 11:37 | ED.URI ---
HPI - URI/Sore Throat General Chief Complaint: General Medical Stated Complaint: Chest pain Time Seen by Provider: 11/06/23 12:20 Source: patient and affirmative action specialist Mode of arrival: ambulatory Limitations: language barrier History of Present Illness HPI Narrative: 33-year-old male with history of depression here with multiple complaints. Patient reports that he has had abscess this left buttocks for 3 months. He reports that he has had intermittent dose of antibiotics which do seem to help the abscess has never completely resolved. He does use intermittent warm soaks. He denies any fevers or chills. He does not currently have a primary care doctor but has an appointment to see 1 for the 1st time in December. Additionally he is complaining of chest pain left-sided described as sharp pain for the last 2 days with no associated shortness of breath, fever, vomiting, diaphoresis. Chest pain is constant and unchanged by activity or rest. It is not worsened with deep breathing. He does notice it with coughing. He has had a dry cough for the last few days and rhinorrhea and his mom is here with similar symptoms. He denies any leg swelling or leg pain. No recent travel or sick contacts. No family history of sudden cardiac or blood clots Related Data Previous Rx's Medication Instructions Recorded cephalexin 500 mg capsule 500 mg PO QID 7 days #28 caps 07/06/23 ibuprofen 600 mg tablet 600 mg PO Q6H PRN pain #30 tabs 07/06/23 cephalexin 500 mg capsule 500 mg PO QID #28 caps 08/15/23 amoxicillin 500 mg tablet 1,000 mg (2 x 500 mg) PO Q12H 7 09/12/23 days #28 tabs ibuprofen 400 mg tablet 400 mg PO TID PRN fever or pain 09/12/23 #30 tabs acetaminophen 325 mg capsule 325 mg PO Q4H PRN pain #30 caps 10/19/23 (Tylenol) amoxicillin 875 mg-potassium 1 tab PO BID 10 days #20 tabs 10/19/23 clavulanate 125 mg tablet amoxicillin 875 mg-potassium 1 tab PO BID #14 tabs 11/06/23 clavulanate 125 mg tablet Allergies Allergy/AdvReac Type Severity Reaction Status Date / Time No Known Allergies Allergy Verified 11/06/23 11:41 [No Known Allergies*] Review of Systems Review of Systems: Yes all other systems are reviewed and are negative Constitutional: Constitutional: Reports no additional constitutional complaints, Denies body ache(s), Denies chills, Denies fever(s), Denies headache(s) and Denies weakness Eyes: Eyes: Reports no additional eye complaints and Denies change in vision ENT: Reports system reviewed and no additional complaints, except as documented, Denies dizziness, Denies headache(s), Reports nasal congestion, Denies nasal discharge and Denies neck pain Cardiovascular: Cardiovascular: Reports no additional cardiovascular complaints, Reports chest pain, Denies leg edema and Denies dyspnea Respiratory: Respiratory: Reports no additional respiratory complaints, Reports cough and Denies dyspnea Gastrointestinal: Gastrointestinal: Reports no additional gastrointestinal complaints, Denies abdominal pain, Denies diarrhea, Denies nausea and Denies vomiting Genitourinary: Genitourinary: Denies urinary incontinence Musculoskeletal: Musculoskeletal: Reports no additional musculoskeletal complaints, Denies back pain, Denies arthralgias, Denies joint swelling, Denies neck pain, Denies numbness and Denies tingling Integumentary/Breasts: Skin/Breast: Reports system reviewed and no additional complaints, except as docu, Reports swelling, Reports erythema and Denies rash Neurologic: Reports system reviewed and no additional complaints, except as documented, Denies Abnormal speech present, Denies dizziness, Denies headache(s), Denies numbness, Denies tingling and Denies weakness PMFSH Past Medical History Attestation statement: The following information was validated with the patient. Source: old records reviewed and nursing notes reviewed Onset Date is defined in the Problem List Problems that require an onset date and time if occurred within 24 hrs of arrival to the ED Aortic Dissection and Rupture; Neurologic impairment; Cardiopulmonary Arrest; Endotracheal Intubation; Insertion or Replacement of Mechanical Circulatory Assist Device Medical History No pertinent past medical history Social History Social History Alcohol intake: never Patient Tobacco Use Status: Never used Tobacco Smoked in Last 30 Days: Yes Use of substances other than those prescribed or required for medical reasons: No Substance Use Type: Marijuana Advance Directives: No Advance Directives Information Provided: Yes Physical Exam Vital Signs: Vital Signs: Last Vital Signs Temp 98.2 F 11/06/23 15:31 Pulse 81 11/06/23 15:32 Resp 16 11/06/23 15:32 BP 125/72 11/06/23 15:32 Pulse Ox 98 11/06/23 15:31 O2 Del Method Room Air 11/06/23 15:31 BMI result Body Mass Index 21.6 Const: General: cooperative, healthy appearing, comfortable and no acute distress Orientation/consciousness: patient oriented x3 Limitations: no limitations HEENT: Head: Yes normal to inspection Ears: hearing grossly normal bilaterally and TM's normal bilaterally General nose exam: Normal external nose present Face and sinus: Yes normal facial exam Mouth: Normal oral and palatal mucosa present Throat: Yes posterior oropharynx normal, Yes tonsils normal and Yes uvula midline Eyes: General: appearance normal, both eyes and all related structures Pupils: Equal, round and reactive pupils present Neck: Neck: Yes normal visual inspection, Yes full ROM, Yes no lymphadenopathy and Yes no meningeal signs Chest: Chest palpation & inspection: normal inspection of the chest Resp: Effort & Inspection: normal respiratory effort Auscultation: clear to auscultation bilaterally Cardio: Rate: regular rate Rhythm: regular rhythm Peripheral pulses: Peripheral pulses 2+ throughout GI: Other: just lateral to the anus there is a medium area of induration and tenderness with no fluctuance, pointing or drainage. It does not extend to the anus. There is no extension to the perineum. Inspection: Yes normal to inspection Palpation (GI): Soft to palpation and nontender Auscultation: normal bowel sounds Back/Spine/Pelvis: Thoracic/Lumbar Spine: thoracic and lumbar spine normal to inspection Skin: General skin exam: no rashes or lesions noted Neuro: General: patient oriented x3, no meningeal signs, no focal motor deficits and normal sensation to monofilament Cranial nerves: Yes Equal, round and reactive pupils present Cognition (Neuro): normal cognition Speech: No Abnormal speech present Gait exam (Neuro): Normal gait present Motor exam (neuro): 5/5 motor strength present throughout Extrem: General: Yes normal to inspection, Yes no pedal edema and Yes no calf tenderness Course Course Course Narrative: This is an RME: Additional HPI, ROS, PE not included below will be deferred to primary provider. Patient is a 33-year-old male who presents to emergency department for evaluation chest pain. Onset was 2 days ago, particularly worse at night, it is intermittent in nature, is exacerbated with nonproductive cough, some nasal congestion. Reports his mother is also ill similar symptoms. Also, he states that and to the left glute that is painful and would like evaluated. Plan: placed in a [facility] pernding bed availability, viral testing Reevaluation(s) Reevaluation #1: Labs are unremarkable. EKG nonischemic. Chest x-ray shows no acute finding. Viral swabs are negative. Patient be discharged home with Augmentin for his abscess. Recommendations follow up with primary care for any continued symptoms. Reviewed worrisome signs and symptoms of when to return to the emergency room. Comfortable plan for discharge home. Medical Decision Making Medical Decision Making [facility] Narrative: 33-year-old male with history of depression here with multiple complaints. Patient reports that he has had abscess this left buttocks for 3 months. He reports that he has had intermittent dose of antibiotics which do seem to help the abscess has never completely resolved. He does use intermittent warm soaks. He denies any fevers or chills. He does not currently have a primary care doctor but has an appointment to see 1 for the 1st time in December. Additionally he is complaining of chest pain left-sided described as sharp pain for the last 2 days with no associated shortness of breath, fever, vomiting, diaphoresis. Chest pain is constant and unchanged by activity or rest. It is not worsened with deep breathing. He does notice it with coughing. He has had a dry cough for the last few days and rhinorrhea and his mom is here with similar symptoms. He denies any leg swelling or leg pain. No recent travel or sick contacts. No family history of sudden cardiac or blood clots Abscess seen on exam with no extension to the anus or perineum which is not conducive to incision or drainage. Patient nontoxic, afebrile. Would benefit from oral antibiotics and recommendations to continue warm compresses and follow up with primary outpatient. In regards to the chest pain I will obtain an EKG, chest x-ray and labs as well as viral testing Differential Diagnosis Differential Diagnoses: The differential diagnosis associated with the presentation includes low suspicion for ACS, aortic dissection, PE Low suspicion for Rectal abscess, Dante's gangrene Admission/Observation Consideration of admission/observation: Escalation of care including admission/observation considered Troponin flat, EKG nonischemic with symptoms for several days. Low concern for ACS requiring admission and further management. Lab Data MDM Lab Attestation statement: I reviewed the patient's lab results. 11/06/23 14:51 11/06/23 14:51 Labs: Lab Results 11/06/23 11/06/23 Range/Units 11:46 14:51 WBC 10.3 (4.8-10.8) X10*3/uL RBC 4.82 D (4.60-5.80) X10*6/uL Hgb 15.7 D (14.0-18.0) g/dl Hct 46.3 D (42.0-52.0) % MCV 96.1 (80.0-98.0) fL MCH 32.6 (27.0-33.0) pg MCHC 33.9 (31.0-36.0) g/dl RDW 11.6 (11.0-16.0) % Plt Count 266 (160-400) X10*3/uL MPV 8.9 L (9.4-12.4) fL Immature Gran % (Auto) 0.3 (0.0-0.4) % Neut % (Auto) 53.5 (45-73) % Lymph % (Auto) 36.5 (20-40) % [place] % (Auto) 8.1 (2-11) % Eos % (Auto) 1.4 (0-4) % Baso % (Auto) 0.2 (0-2) % Lymph # (Auto) 3.7 (1.2-4.9) X10*3/uL [place] # (Auto) 0.8 (0.1-1.2) X10*3/uL Eos # (Auto) 0.1 (0.0-0.4) X10*3/uL Baso # (Auto) 0.0 (0.0-0.2) X10*3/uL Abs Immat Gran (auto) 0.03 (0.00-0.03) X10*3/uL Absolute Neuts (auto) 5.5 (2.0-8.3) x10*3/uL Absolute Nucleated RBC 0.000 (0.0-0.012) X10*3/uL Nucleated RBC % (auto) 0.0 (0.0-0.2) /100WBC Sodium 138 (135-145) mmol/L Potassium 4.0 (3.3-5.1) mmol/L Chloride 104 (96-108) mmol/L Carbon Dioxide 25 (22-29) mmol/L Anion Gap 13 (12-20) BUN 9 (9-16) mg/dL Creatinine 0.93 (0.5-1.4) mg/dL Estim Creat Clear Calc 99.8 Estimated GFR > 60 Random Glucose 83 (60-115) mg/dL Calcium 9.5 (8.4-10.2) mg/dL Total Bilirubin 0.5 (0.0-1.0) mg/dL Direct Bilirubin 0.2 (0.0-0.5) mg/dL AST 30 (5-37) U/L ALT 31 (0-40) U/L Alkaline Phosphatase 70 (39-117) U/L Troponin I High Sens < 2.7 (<3.5-35.0) ng/L Total Protein 7.4 (6.5-8.0) g/dL Albumin 4.2 (3.5-5.0) g/dL COVID-19 (PILAR) Negative (Negative) COVID-19 Clin Com See Note Influenza Type A ([facility]ON) Negative (Negative) Influenza Type B ([facility]) Negative (Negative) Influenza A & B Note See Note Independent Interpretation I performed an independent interpretation of an: EKG and Plain X-Ray Interpretation: I independently viewed the EKG which is sinus tachycardia with a rate of 102, normal NH, normal QRS, normal QT I independently viewed the x-ray and agree with the radiologist's Radiology Impression Discussion of test interpretation with radiology: I have reviewed the radiologist's reading. 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 FINDINGS: No significant abnormality is noted involving the heart, lungs, mediastinum, bony thorax or soft tissues. XR/XR chest 2V IMPRESSION: Unremarkable examination. Discharge Plan Discharge Clinical Impression: Abscess, Chest pain, Acute viral syndrome Patient Disposition: Home, Self-Care Instructions: Chest Pain (ED), Abscess (ED), Viral Syndrome (ED) Additional Instructions: Testing for flu/covid are negative Labs are unremarkable Chest x-rays shows no acute finding Warm soaks 3-4 x/day Las pruebas de gripe/covid son negativas Los laboratorios no tienen nada de especial La radiograf?a de t?rax no muestra amrit?n hallazgo denise Ba?os tibios 3-4 veces al d?a Prescriptions: New amoxicillin-pot clavulanate 875-125 mg tablet 1 tab PO BID Qty: 14 0RF No Action amoxicillin-pot clavulanate 875-125 mg tablet 1 tab PO BID 10 Days Qty: 20 0RF acetaminophen [Tylenol] 325 mg capsule 325 mg PO Q4H PRN (Reason: pain) Qty: 30 0RF cephalexin 500 mg capsule 500 mg PO QID 7 Days Qty: 28 0RF ibuprofen 600 mg tablet 600 mg PO Q6H PRN (Reason: pain) Qty: 30 0RF cephalexin 500 mg capsule 500 mg PO QID Qty: 28 0RF amoxicillin 500 mg tablet 1,000 mg PO Q12H 7 Days Qty: 28 0RF ibuprofen 400 mg tablet 400 mg PO TID PRN (Reason: fever or pain) Qty: 30 0RF Referrals: Physician,Unknown J [Primary Care Provider] - 1 week Print Language: Swedish
[2023-11-06 12:08] LABS: COVID-19 Test Negative (Negative); IDNOW Serial# 16C4AD1C
[2023-11-06 12:14] LABS: IDNOW Serial# 55D5AD1C; Influenza A Negative (Negative); Influenza B2 Negative (Negative)
[2023-11-06 14:56] LABS: MANUAL DIFF FLAG NO
[2023-11-06 14:57] LABS: Basophils Percent Auto 0.2 % (0-2); Eosinophils Absolute Auto 0.1 X10*3/uL (0.0-0.4); Eosinophils Percent Auto 1.4 % (0-4); Hematocrit 46.3 % (42.0-52.0); Hemoglobin 15.7 g/dl (14.0-18.0); Imm Gran Abs Auto 0.03 X10*3/uL (0.00-0.03); Imm Gran Pct Auto 0.3 % (0.0-0.4); Lymphocytes Absolute Auto 3.7 X10*3/uL (1.2-4.9); Lymphocytes Percent Auto 36.5 % (20-40); Mean Corpuscular HGB Conc 33.9 g/dl (31.0-36.0); Mean Corpuscular Hemoglobin 32.6 pg (27.0-33.0); Mean Corpuscular Volume 96.1 fL (80.0-98.0); Mean Platelet Volume 8.9 fL (9.4-12.4); Monocytes Absolute Auto 0.8 X10*3/uL (0.1-1.2); Monocytes Percent Auto 8.1 % (2-11); Neutrophils Absolute Auto 5.5 x10*3/uL (2.0-8.3); Neutrophils Percent Auto 53.5 % (45-73); Platelet Count 266 X10*3/uL (160-400); Red Blood Count 4.82 X10*6/uL (4.60-5.80); Red Cell Distribution Width 11.6 % (11.0-16.0); White Blood Count 10.3 X10*3/uL (4.8-10.8)
[2023-11-06 15:18] LABS: Troponin-I High Sensitivity < 2.7 ng/L (<3.5-35.0)
[2023-11-06 15:31] VITALS: BP 128/76; PULSE 94; RESP 17; TEMP 36.8; O2SAT 98
[2023-11-06 15:32] VITALS: BP 125/72; PULSE 81; RESP 16
[2023-11-06 16:06] LABS: Alanine Aminotransferase 31 U/L (0-40); Albumin Level 4.2 g/dL (3.5-5.0); Alkaline Phosphatase 70 U/L (39-117); Anion Gap 13 (12-20); Aspartate Amino Transferase 30 U/L (5-37); Bilirubin Direct 0.2 mg/dL (0.0-0.5); Bilirubin Total 0.5 mg/dL (0.0-1.0); Blood Urea Nitrogen 9 mg/dL (9-16); Calcium 9.5 mg/dL (8.4-10.2); Carbon Dioxide 25 mmol/L (22-29); Chloride 104 mmol/L (96-108); Creatinine Clr Calc Pharmacy 99.8; Estimated Glomerular Filt Rate > 60; Glucose Random 83 mg/dL (60-115); Sodium 138 mmol/L (135-145); Total Protein 7.4 g/dL (6.5-8.0)
== END 2023-11-06 16:24 | disposition home or self-care (01) ==
PROVIDERS: Nurse Practitioner Family; Emergency Provider Emergency Medicine
DX: B34.9 Viral infection, unspecified (principal); R07.89 Other chest pain; J02.9 Acute pharyngitis, unspecified; Z11.52 Encounter for screening for COVID-19; Z79.899 Other long term (current) drug therapy
CPT/HCPCS: 36415; 71046; 80048; 80076; 84484; 85025; 87502; 87635; 93005; 99283; 99284

== ENCOUNTER → 2023-11-06 11:28 | Outpatient (BNV) | payer MEDICAID, SELFPAY | PROVIDERS: Emergency Provider Emergency Medicine; Visit Provider Internal Medicine Cardiovascular Disease | DX: R00.0 Tachycardia, unspecified (principal); R94.31 Abnormal electrocardiogram [ECG] [EKG] | CPT/HCPCS: 93010 ==

== ENCOUNTER 2024-03-14 23:09 | Emergency (ER) | payer MEDICAID, SELFPAY ==
--- NOTE | 2024-03-14 | ECG_ITS ---
Test Reason : CHEST PAIN Blood Pressure : / mmHG Vent. Rate : 091 BPM Atrial Rate : 091 BPM P-R Int : 136 ms QRS Dur : 086 ms QT Int : 344 ms P-R-T Axes : 081 -41 035 degrees QTc Int : 423 ms Normal sinus rhythm Left axis deviation Abnormal ECG When compared with ECG of 06-NOV-2023 11:32, No significant change was found Referred By: Generic ED Physician Electronically Signed By:MORENA MIRANDA
[2024-03-14 23:15] VITALS: BP 126/78; PULSE 100; RESP 18; TEMP 36.6; O2SAT 96
[2024-03-14 23:31] LABS: Basophils Percent Auto 0.2 % (0-2); Eosinophils Absolute Auto 0.2 X10*3/uL (0.0-0.4); Eosinophils Percent Auto 1.8 % (0-4); Hematocrit 42.4 % (42.0-52.0); Hemoglobin 14.6 g/dl (14.0-18.0); Imm Gran Abs Auto 0.03 X10*3/uL (0.00-0.03); Imm Gran Pct Auto 0.3 % (0.0-0.4); Lymphocytes Absolute Auto 3.2 X10*3/uL (1.2-4.9); Lymphocytes Percent Auto 33.2 % (20-40); MANUAL DIFF FLAG NO; Mean Corpuscular HGB Conc 34.4 g/dl (31.0-36.0); Mean Corpuscular Hemoglobin 33.7 pg (27.0-33.0); Mean Corpuscular Volume 97.9 fL (80.0-98.0); Mean Platelet Volume 8.8 fL (9.4-12.4); Monocytes Absolute Auto 0.9 X10*3/uL (0.1-1.2); Monocytes Percent Auto 9.4 % (2-11); Neutrophils Absolute Auto 5.2 x10*3/uL (2.0-8.3); Neutrophils Percent Auto 55.1 % (45-73); Platelet Count 280 X10*3/uL (160-400); Red Blood Count 4.33 X10*6/uL (4.60-5.80); Red Cell Distribution Width 12.7 % (11.0-16.0); White Blood Count 9.5 X10*3/uL (4.8-10.8)
--- NOTE | 2024-03-14 23:33 | ED.CHESTPAIN ---
HPI - Chest Pain General Chief Complaint: Chest Pain Stated Complaint: cp Time Seen by Provider: 03/14/24 23:25 Source: patient Mode of arrival: ambulatory Limitations: no limitations History of Present Illness ED Provider: anum PLASENCIA narrative: Patient is 34 years old complaining of sharp pain in the chest for last few hours no history of cocaine use no history of hypertension or diabetes no prior cardiac disease patient came from [facility] psych says that he does get sharp pain when he gets anxiety Related Data Previous Rx's ?Medication ?Instructions ?Recorded cephalexin 500 mg capsule 500 mg PO QID 7 days #28 caps 07/06/23 ibuprofen 600 mg tablet 600 mg PO Q6H PRN pain #30 tabs 07/06/23 cephalexin 500 mg capsule 500 mg PO QID #28 caps 08/15/23 amoxicillin 500 mg tablet 1,000 mg (2 x 500 mg) PO Q12H 7 09/12/23 days #28 tabs ibuprofen 400 mg tablet 400 mg PO TID PRN fever or pain 09/12/23 #30 tabs acetaminophen 325 mg capsule 325 mg PO Q4H PRN pain #30 caps 10/19/23 (Tylenol) amoxicillin 875 mg-potassium 1 tab PO BID 10 days #20 tabs 10/19/23 clavulanate 125 mg tablet amoxicillin 875 mg-potassium 1 tab PO BID #14 tabs 11/06/23 clavulanate 125 mg tablet Allergies Allergy/AdvReac Type Severity Reaction Status Date / Time fluoxetine [From Prozac] Allergy Unknown Verified 03/14/24 23:40 paliperidone [From Invega] Allergy Unknown Verified 03/14/24 23:40 risperidone Allergy Unknown Verified 03/14/24 23:40 Review of Systems Review of Systems: Yes all other systems are reviewed and are negative PMFSH Past Medical History Medical History No pertinent past medical history Social History Social History Alcohol intake: never Patient Tobacco Use Status: Never used Tobacco Substance Use Type: Marijuana Advance Directives: No Advance Directives Information Provided: No Do you have a plan to hurt others: No Plan Physical Exam Vital Signs: Vital Signs: Last Vital Signs Temp 97.8 F 03/14/24 23:15 Pulse 100 03/14/24 23:15 Resp 18 03/14/24 23:15 BP 126/78 03/14/24 23:15 Pulse Ox 96 03/14/24 23:15 O2 Del Method Room Air 03/14/24 23:15 BMI result Body Mass Index 23.4 Appearance: Alert. Oriented X3. No acute distress. ENT: Pharynx normal. Oral Mucosa moist Neck: Normal inspection. Neck supple. CVS: Normal heart rate and rhythm. Pulses normal. Respiratory: No respiratory distress. Equal air entry bilateral, Abdomen: Soft and nontender. Bowel sounds are present, Skin: Skin warm and dry. Normal skin color. Normal skin turgor. Extremities: No lower extremity edema. No calf tenderness Neuro: Oriented X 3. No motor deficit. Medical Decision Making Medical Decision Making [facility] Narrative: Patient has atypical chest pain anxiety with normal EKG normal troponin discharge patient back to inpatient psych Differential Diagnosis Differential Diagnoses: The differential diagnosis associated with the presentation includes Lab Data [facility] Lab Attestation statement: I reviewed the patient's lab results. 03/14/24 23:27 03/14/24 23:27 Labs: Lab Results 03/14/24 Range/Units 23:27 WBC 9.5 (4.8-10.8) X10*3/uL RBC 4.33 L (4.60-5.80) X10*6/uL Hgb 14.6 (14.0-18.0) g/dl Hct 42.4 (42.0-52.0) % MCV 97.9 (80.0-98.0) fL MCH 33.7 H (27.0-33.0) pg MCHC 34.4 (31.0-36.0) g/dl RDW 12.7 (11.0-16.0) % Plt Count 280 (160-400) X10*3/uL MPV 8.8 L (9.4-12.4) fL Immature Gran % (Auto) 0.3 (0.0-0.4) % Neut % (Auto) 55.1 (45-73) % Lymph % (Auto) 33.2 (20-40) % [place] % (Auto) 9.4 (2-11) % Eos % (Auto) 1.8 (0-4) % Baso % (Auto) 0.2 (0-2) % Lymph # (Auto) 3.2 (1.2-4.9) X10*3/uL [place] # (Auto) 0.9 (0.1-1.2) X10*3/uL Eos # (Auto) 0.2 (0.0-0.4) X10*3/uL Baso # (Auto) 0.0 (0.0-0.2) X10*3/uL Abs Immat Gran (auto) 0.03 (0.00-0.03) X10*3/uL Absolute Neuts (auto) 5.2 (2.0-8.3) x10*3/uL Absolute Nucleated RBC 0.000 (0.0-0.012) X10*3/uL Nucleated RBC % (auto) 0.0 (0.0-0.2) /100WBC Sodium 141 (135-145) mmol/L Potassium 4.3 (3.3-5.1) mmol/L Chloride 105 (96-108) mmol/L Carbon Dioxide 25 (22-29) mmol/L Anion Gap 15 (12-20) BUN 23 H (9-16) mg/dL Creatinine 0.88 (0.5-1.4) mg/dL Estim Creat Clear Calc 110.5 Estimated GFR > 60 Random Glucose 95 (60-115) mg/dL Calcium 9.5 (8.4-10.2) mg/dL Total Bilirubin 0.3 (0.0-1.0) mg/dL AST 24 (5-37) U/L ALT 39 (0-40) U/L Alkaline Phosphatase 62 (39-117) U/L Troponin I High Sens < 2.7 (<3.5-35.0) ng/L Total Protein 7.1 (6.5-8.0) g/dL Albumin 4.2 (3.5-5.0) g/dL Independent Interpretation I performed an independent interpretation of an: EKG Interpretation: Normal sinus rhythm heart rate 91 beats per minute normal interval left axis no acute ST-T changes no acute ischemia Discharge Plan Discharge Clinical Impression: Atypical chest pain Patient Disposition: Home, Self-Care Instructions: Chest Wall Pain (ED) Additional Instructions: Take Tylenol/Motrin for pain as needed Follow with your PCP Prescriptions: No Action amoxicillin-pot clavulanate 875-125 mg tablet 1 tab PO BID 10 Days Qty: 20 0RF acetaminophen [Tylenol] 325 mg capsule 325 mg PO Q4H PRN (Reason: pain) Qty: 30 0RF amoxicillin-pot clavulanate 875-125 mg tablet 1 tab PO BID Qty: 14 0RF cephalexin 500 mg capsule 500 mg PO QID 7 Days Qty: 28 0RF ibuprofen 600 mg tablet 600 mg PO Q6H PRN (Reason: pain) Qty: 30 0RF cephalexin 500 mg capsule 500 mg PO QID Qty: 28 0RF amoxicillin 500 mg tablet 1,000 mg PO Q12H 7 Days Qty: 28 0RF ibuprofen 400 mg tablet 400 mg PO TID PRN (Reason: fever or pain) Qty: 30 0RF Print Language: Hong Konger
[2024-03-14 23:34] VITALS: BP 128/70; PULSE 90; BMI 23.4
[2024-03-14 23:46] LABS: Alanine Aminotransferase 39 U/L (0-40); Albumin Level 4.2 g/dL (3.5-5.0); Alkaline Phosphatase 62 U/L (39-117); Anion Gap 15 (12-20); Aspartate Amino Transferase 24 U/L (5-37); Bilirubin Total 0.3 mg/dL (0.0-1.0); Blood Urea Nitrogen 23 mg/dL (9-16); Calcium 9.5 mg/dL (8.4-10.2); Carbon Dioxide 25 mmol/L (22-29); Chloride 105 mmol/L (96-108); Creatinine Clr Calc Pharmacy 110.5; Estimated Glomerular Filt Rate > 60; Glucose Random 95 mg/dL (60-115); Potassium 4.3 mmol/L (3.3-5.1); Sodium 141 mmol/L (135-145); Total Protein 7.1 g/dL (6.5-8.0)
--- OUTSIDE RECORDS SUMMARY | 2024-03-14 23:53 | XMS_ITS | Continuity of Care Document ---
Author Organization [facility] ter Address [address] [place] [id number]- Care Team Providers Care Automotive Technician Instructor Name Role Phone Not on Staff, PCP Primary Care Physician Unavail able Encounter [facility] Date(s): 02/06/24 - 02/07/[address] [address]- Encounter Diagnosis Psychotic disorder with hallucinations(Final) - 02/06/24 Anxiety(Final) - 02/06/24 Auditory hallucination(Final) - 02/06/24 Discharge Disposition: Transfer to [facility] Facility Attending Physician: Leticia Garcia MD Admitting Physician: Leticia Garcia MD Referring Physician: Not on Staff, Referring MD Allergies, Adverse Reactions, Alerts Substance Reaction Severity Status paliperidone Partial therapeutic response Active FLUoxetine Sleep disturbance Active risperiDONE Partial therapeutic response Active Medications albuterol CFC free 90 mcg/inh inhalation aerosol 2, puffs, Inhalation, 4 times a day, PRN, # 18 Gm, Refills 0, Tot. Refills 0, Maintenance, 08/03/2314:51:00 EDT, Aerosol, Route to Pharmacy Electronically, [id number], [id number] Start Date: 08/03/23 Status: Ordered fluticasone 50 mcg/inh nasal spray 1 sprays, Nares, Both, 2 times a day, # 16 Gm, 0 Refills, Maintenance, 08/03/23 14:51:00 EDT, [place], [id number], Partial fill upon patient request if the prescription is for a schedule II opioid drug., 1 sprays Nares, Both 2 times a day Start Date: 08/03/23 Status: Ordered Problem List Condition Confirmation Course Effective Dates Status Health St atus Informant Asthma Confirmed Active Vital Signs Most recent to oldest [Reference Range]: 1 2 3 Height 170 cm (02/07/24 1:19 PM) 170 cm (02/07/24 7:31 AM) 170 cm (02/06/24 2:06 PM) Weight 61.1 kg (02/07/24 1:19 PM) 61.1 kg (02/07/24 7:31 AM) 61.1 kg (02/06/24 2:06 PM) Oxygen Saturation [94-100 %] 97 % (02/07/24 1:19 PM) 94 % (02/07/24:31 AM) 98 % (02/06/24 1:10 PM) Pulse Rate [55-90 bpm] 97 bpm *H* (02/07/24:19 PM) 124 bpm *H* (02/07/24: AM) 86 bpm (02/06/24 1:10 PM) Body Mass Index [18.5-24.99 kg/m2] 21.14 kg/m2 (02/07/24:19 PM) 21.14 kg/m2 (02/07/24: AM) Blood Pressure [90-138/55-84 mm Hg] 113/89mm Hg (02/07/24 1:19 PM) 125/81mm Hg (02/07/24 7:31 AM) 150/101mm Hg *H* (02/06/24 1:10 PM) Respiratory Rate [16-30 br/min] 18 br/min (02/07/24 1:19 PM) 18 br/min (02/07/24 7:31 AM) 16 br/min (02/06/24 1:10 PM) Temperature [96.8-100.4 DegF] 97.6 DegF (02/06/24 1:10 PM) Mode of Delivery (Oxygen) Room air (02/07/24 1:19 PM) Room air (02/07/24 7:31 AM) Room air (02/06/24 1:10 PM) Blood pressure sites Arm, left (02/07/24 1:19 PM) Arm, right (02/07/24 7:31 AM) Arm, right (02/06/24 1:10 PM) Temperature Route Oral (02/07/24 1:19 PM) Oral (02/06/24 1:10 PM) Dry Weight 61.1 kg (02/07/24 1:19 PM) 61.1 kg (02/07/24 7:31 AM) 61.1 kg (02/06/24 2:06 PM) EKG study * Event Display: ECG 12-Lead Authored Date: Please click on pdf link to open report * Event Display: ECG 12-Lead Authored Date: Ventricular Rate: 99 BPM Atrial Rate: 99 BPM P-R Interval: 126 ms QRS Duration: 82 ms Q-T Interval: 338 ms QTC Calculation(Bazett): 433 ms P [place]: 81 degrees R [place]: -64 degrees T [place]: 64 degrees Normal sinus rhythm Left axis deviation Abnormal ECG No previous ECGs available Confirmed by NESTOR MCINTYRE ([id number]) on 02/07/2024 11:04:26 AM [place]: NESTOR MCINTYRE * Event Display: EKG Authored Date: Hospital Progress note * Event Display: Progress Note Hospital Authored Date: Consult note * Prior Kye WALLER S: MODIFY, MODIFY, MODIFY, MODIFY, PERFORM Event Display: Consultation Note Authored Date: [id number] Patient: ??KOLBY OSBORNE ? Age:??33 Years?Sex:??Male?:??1990?? History of Present Illness Referring Physician:?Dr. Karel John ?? Chief Complaint / Reason for consult:?psychotropic medication evaluation/management ?? Source of information:??Per patient, [facility] records, duplicate chart??( ) ?? Identifying information:??KOLBY PARK??is a 33-year-old patient with past??history of asthma, HIV, constipation, sciatica/back pain, dysuria,??nicotine dependence and use disorder, cannabis use disorder, schizophreniform disorder,??and query??complex PTSD,??who initially presented to [facility]EDon 02/06/24 for evaluation of auditory hallucinations and anxiety. ?? History of Present Illness:??Patient is??known??to the [facility] psychiatry service??from prior encounter(s), most recently from inpatient psychiatric hospitalization??on [facility] 12/10/2020-12/17/2020. On this presentation, ED provider described patient presenting for anxiety. ??Patient states he hasnot had any of his medications past 2 months and has been living on the streets were placed to stay. ??He does say that every once while he stays with his brother. ??He denies any current symptoms although initially reported abdominal pain and subsequently denied it and said I was unable to examinehis abdomen. ??He states he has had decreased appetite. ??He has had normal bowel bladder function.??He was seen with in person bender machine and not very cooperative with answering questions.??He states that he sees N and has seen crisis in the past. He denies any hallucinations, suidical ideation or homicidal ideation..Patient very reserved and not very cooperative or forthcoming with questions. Seems visiblly agitated. States he needs help . Patient handed me a notecard which says B5 [place], and [phone] .??Vitals significant for hypertension, physical exam without any signficant findings...Patient visibly anxious. Offered PO ativan which he agreed to. ?? Per ED provider documentation: Initial vital signs: elevated BP 150/101, otherwise within normal limits Physical exam: somewhat cooperative Serology:??no leukocytosis, macrocytosis MCV 98.7 without anemia, nonfasting glucose 165,??no renalimpairment,??no electrolyte abnormalities,??low TSH 0.39 with normal free T4,??serum ethanol not detected Urinalysis: toxicology positive for cannabinoid Imaging: none ECG: none Misc: negative COVID-19 by RT-PCR No other diagnostics were performed in the ED. Interventions: none Other orders/referrals: medically cleared, Crisis, Psychiatry ?? On initial interview, patient is alert and oriented to all spheres. Corroborates foregoing account of precipitating events except to evade questions regarding auditory hallucinations endorsed to another health care worker??on initial presentation. Describes mood as anxious but will not share any suspicions as to why, noting only that he is smoking cigarettes to cope and it's not helpful. Sharesdesire to quit smoking, currently 10 cigarettes daily. Endorses??cannabis use, last use 3 weeks ago.??Turns away from this senior technical writer and disengages from conversation??in response to questions about??other??substance use.??Several attempts by this senior technical writer to??demonstrate curiosity??motivated by desire to help are met with increasing psychomotor agitation??and??demands to be left alone.??Patient does not report any additional symptoms concerning for anxiety, depression, aaron, psychosis or PTSD. Patient currently denies any suicidal ideation,??homicidal ideation or desires for self-injurious behaviors. ?? Initial Crisis evaluation by Ana oNvoa??took place following this senior technical writer's??encounter, and herwritten evaluation is pending at time of writing. Ana verbally shared with this senior technical writer that patient endorsed auditory and visual hallucinations of angels numbering in the 20s whose voices are comf orting, and that patient was reticent regarding further details. ?? Past medical, psychiatric, and family history from patient is??unobtainable??due to altered mentation??secondary to acute psychiatric illness??and is ascertained/supplemented from aforementioned collateral sources, summarized below. ?? Past Psychiatric History:?? Diagnoses:?? Anxiety is sole psychiatric diagnosis??per patient report. Chart documentation shows history of??schizophreniform disorder,??query complex PTSD, cannabis use disorder, moderate, and nicotine use disorder, mild.?? Hospitalizations: 2 admission in [place], 2 prior admissions to [facility], most recently 12/10/2020-12/17/2020. 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 Denies any history of aggression. No history of head injuries, concussions, traumatic brain injuries??or seizures. No history of ECT treatments. Current Psychotropic Medications:??Denies currently being on any psychotropic medications.?? Past Treatment Trials:??Aripiprazole, mirtazapine, propranolol (plan??to taper 2020), benztropine (plan to taper in setting of risperidone and paliperidone discontinuation in 2020), hydroxyzine, propranolol,??fluoxetine (sleep disturbance), paliperidone/Invega GALLARDO (inadequate therapeutic benefit), r isperidone (inadequate??therapeutic benefit) Outpatient Providers:??Denies having a psychiatrist or therapist in the outpatient setting.??Unknown history of follow-up with [facility] in [place] as was part of follow-up plan on discharge from [facility] 12/19/2020. ?? Substance Use Patient admits to smoking 10 cigarettes daily and??and cannabis sporadically (last use 3 weeks ago). Denies??current use of alcohol, heroin, cocaine, LSD, PCP, methamphetamine or prescription medication abuse. ?? Social History Living Situation -??Originally from [place], has been living with brother locally for the past 1 month. 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 ?? Family History:?? Chart documentation??reports paternal family history of??schizophrenia, which patient denied.??No known family history of suicidality or attempts. Review of Systems Pertinent positives as listed above in HPI.??Otherwise, remainder of review of systems negative. Mental Status Vitals & Measurements T:??97.6?F?? HR:??86??(Peripheral)?? RR:??16?? BP:??150/101?? SpO2:??98%?? WT:??61.1??kg?? Mental Status Exam Appearance: Casual, disheveled Eye contact: Abrupt alternation between high intensity and avoidance Attitude: Guarded Motor Activity: Initial calm but quickly escalated to severe psychomotor agitation; absent of tics,tremors, psychomotor slowing Mood: Anxious Affect: Abrupt alternation between restriction and rage Speech: Nonspontaneous, normal rate and??rhythm,??low tone, no prosodic deficits Perception: Currently denying AVH contrary to multiple collateral reports of auditory and visual hallucinations; appears internally preoccupied, but not overtly responding to internal stimuli Orientation: Intact to all spheres Memory: Grossly intact Thought Process: Disorganized, blocking?? Thought Content: Help-seeking, help-rejecting Medication Adherence: Impaired Reliability: Limited historian Insight: Impaired Judgment: Impaired?? Impulse control: Impaired Suicidality/Self-destructive Behavior: None currently Homicidality/Violence: Menacing tone and posturing??without explicit verbal threat or assaultive behavior ?? Musculoskeletal Antigravity. No rigidity noted. Moving all four extremities spontaneously. Not observed ambulating.?? Isabella Suicide Score Isabella Suicide Assessment Ca (02/06/24) Suicidal Thoughts Past Month - CSSRS: No (02/06/24) Suicide Behavior Lifetime - CSSRS: No (02/06/24) Wish to be Past Month - CSSRS: No (02/06/24) Assessment/Plan Assessment:?In brief, this is a 33-year-old patient with past??history of asthma, HIV, constipation, sciatica/back pain, dysuria,??nicotine dependence and use disorder, cannabis use disorder, schizophreniform disorder,??and query??complex PTSD,??who initially presented to [facility]ED on 02/06/24 for evaluation of auditory hallucinations and anxiety. At this point in time, the patient has been medically cleared and referred to??[facility] Crisis for evaluation and assistance with disposition,??albeit currently pending bed search for inpatient psychiatric hospitalization.?? The emergency psychiatry service was consulted for assistance with medication management. There is concern for primary psychotic illness as evident by??recurrent auditory hallucinations with a past history of schizophreniform history, although substance-induced pathology cannot be ruled out given recent history of cannabis and lack of clear interim history subsequent to diagnosis of schizophreniform disorder made in December 2020. Initial psychiatric evaluation was limited by and notable for severe psychomotor agitation in response to questions regarding his substance use, preceding which patient had identified anxiety anddesire to quit smoking cigarettes as problems??for which he wanted help.??Diagnostic clarification is deferred to the next/longitudinal level of care. In the interim, will initiate psychotropic regimen targeting hallucinations and affective lability as approximates last known plan per APTU discharge summary 12/19/2020 and provide PRNs for comfort and safety in the ED while patient awaits placement.Explained to the patient the differential diagnoses, treatment options, risks of untreated illness,and risks/benefits of treatment. See below for??detailed??treatment recommendations. ?? Diagnoses Psychotic disorder, unspecified, r/o schizophrenia Auditory hallucinations Visual Hallucinations Agitation Cannabis use, r/o cannabis-induced psychotic disorder Schizophreniform disorder, by history Cannabis use disorder, by history Nicotine use disorder with dependence, by history ?? Recommendations: -Disposition as per Crisis Services, albeit currently a bed search for inpatient psychiatric hospitalization. -Barriers to placement: none identified. -Continue constant rail director. Patient may NOT leave AMA without Crisis/Psychiatry clearance. -Start aripiprazole 10 mg PO QD for mood stabilization and psychosis. Patient has historically tolerated??and benefitted from 15 mg daily with prospective plan for transition to GALLARDO in??cross-titration/switch from Invega.??Side effects including, but??not limited to??weight gain, risk for diabetes and dyslipidemia, dizziness, sedation, orthostatic hypotension and increased risk of and cerebrovascular events in elderly patients with dementia???related psychoses were review. -Start hydroxyzine 50 mg PO Q6H PRN anxiety and trazodone 50-100 mg PO QHS PRN insomnia -Start olanzapine 5 mg and diphenhydramine 50 mg PO/IM agitation/psychosis, reserving IM for severeagitation with acute safety concern and refusal of PO. -Would note that these medications are only being utilized in the ER while the patient awaits placement. Long-term need for these medications will need to be assessed by the patient's future treatingpsychiatrist. -Seclusion or restraint may only be used as interventions of last resort in the management of severe agitation in patient. If they are used, seclusion and restraint episodes should be as short as possible, dignified, and as safe as possible for all involved. Patient preference should always be considered when feasible. -Follow-up baseline labs including Hepatobiliary biochemistry to rule out organic etiology of presenting symptoms and establish prescribing parameters. -ECG for baseline QT/QTc??given potentially??QT-prolonging polypharmacy. ?? We counseled the patient in detail about the importance of sobriety and the interplay between usageof recreational and illicit substances and psychiatric symptoms. We explained to the patient that recreational and illicit substances would interfere with the efficacy of psychiatric medications and would keep the psychiatric medications from being able to show optimal therapeutic effect. We spoke at length about how recreational and illicit substances are known to worsen psychiatric symptoms andare known to put patients at chronic risk for recurrent psychiatric decompensation. Patient was also made aware of the fact that recreational and illicit substances are known to lead to impulsivity and disinhibited behavior because of which patient may become more likely to act on negative thoughtsincluding thoughts of suicidality/homicidality. Patient was strongly advised to stay away from any recreational and illicit substances in the future, as any usage of recreational and illicit substances upon discharge would put the patient at chronic risk for recurrent psychiatric decompensation leading to chronic risk for impulsive behavior including but not limited to risk for suicide/self-harm/harm to others. Patient expressed a good understanding of this and showed motivation to stay away from recreational and illicit substances upon discharge and to work on addiction during individual psychotherapy sessions in the outpatient setting. ?? Please feel free to contact the Psychiatry consult service (page [phone]) with any questions or concerns.? Recommendations messaged via??[employer] to Dr. Con Robles and Dr. Yaya John ?? Kye Grace PA-C (he/him) Emergency Psychiatry Services Division of Consultation-Liaison Psychiatry Department of Psychiatry [facility]? Medications Inpatient ARIPiprazole 10 mg oral tablet, 10 mg, By Mouth, Daily diphenhydrAMINE 25 mg oral tablet, 50 mg, By Mouth, Every 6 hours, PRN hydrOXYzine pamoate 25 mg oral capsule, 50 mg, By Mouth, Every 6 hours, PRN Nicotine Topical, 14 mg, Topically, Daily olanzapine 5 mg oral tablet, 5 mg, By Mouth, Every 6 hours, PRN Remove Patch, 1 each, Topically, Daily at bedtime traZODone 50 mg oral tablet, 50 mg, By Mouth, Daily at bedtime, PRN Home albuterol CFC free 90 mcg/inh inhalation aerosol, 2 puffs, Inhalation, 4 times a day, PRN fluticasone 50 mcg/inh nasal spray, 1 sprays, Nares, Both, 2 times a day Allergies NKA Lab Results Event Name?? Event Result?? Normal Range?? Date/Time?? WBC 9.9 k/mm3 4 k/mm3 - 11 k/mm3 02/06/24 15:42:00 RBC 4.58 m/mm3??Low 4.7 m/mm3 - 6.1 m/mm3 02/06/24 15:42:00 Hgb 14.9 Gm/dL 13.7 Gm/dL - 17.1 Gm/dL 02/06/24 15:42:00 Hct 45.2 % 40.5 % - 50 % 02/06/24 15:42:00 MCV 98.7 femtoliters??High 80 femtoliters - 94 femtoliters 02/06/24 15:42:00 MCH 32.5 pg 27 pg - 34 pg 02/06/24 15:42:00 MCHC 33 g/dL 33 g/dL - 37 g/dL 02/06/24 15:42:00 Platelet Count 263 k/mm3 150 k/mm3 - 460 k/mm3 02/06/24 15:42:00 RDW-SD 51.7 femtoliters??High ?? 02/06/24 15:42:00 MPV 9.9 femtoliters 9.4 femtoliters - 12.4 femtoliters 02/06/24 15:42:00 Nucleated RBC (Automated) 0 #/100 WBC'S ?? 02/06/24 15:42:00 Abs. NRBC 0 k/mm3 ?? 02/06/24 15:42:00 Abs. Neut 7.1 k/mm3??High 1.3 k/mm3 - 7 k/mm3 02/06/24 15:42:00 Abs. Lymph 2 k/mm3 0.8 k/mm3 - 3.1 k/mm3 02/06/24 15:42:00 Abs. Sully 0.6 k/mm3 0.4 k/mm3 - 1.3 k/mm3 02/06/24 15:42:00 Abs. Eo 0 k/mm3 0 k/mm3 - 0.4 k/mm3 02/06/24 15:42:00 Abs. Baso 0 k/mm3 0 k/mm3 - 0.1 k/mm3 02/06/24 15:42:00 Neut % 71.9 % 44 % - 76 % 02/06/24 15:42:00 Lymph % 20.6 % 15 % - 43 % 02/06/24 15:42:00 Sully % 6.4 % 4.5 % - 10.5 % 02/06/24 15:42:00 Eos % 0.4 % 0 % - 6 % 02/06/24 15:42:00 Baso % 0.2 % 0 % - 2 % 02/06/24 15:42:00 Imm Gran 0.5 % ?? 02/06/24 15:42:00 Abs. Imm Gran 0.1 k/mm3 ?? 02/06/24 15:42:00 Sodium 136 mmol/L 133 mmol/L - 145 mmol/L 02/06/24 15:42:00 Potassium 4 mmol/L 3.6 mmol/L - 5.2 mmol/L 02/06/24 15:42:00 Chloride 99 mmol/L 98 mmol/L - 107 mmol/L 02/06/24 15:42:00 Bicarbonate Level 24 mmol/L 22 mmol/L - 29 mmol/L 02/06/24 15:42:00 Anion Gap 13 4 ??- 17 02/06/24 15:42:00 Glucose Level 165 mg/dL??High 70 mg/dL - 99 mg/dL 02/06/24 15:42:00 BUN 12 mg/dL 6 mg/dL - 20 mg/dL 02/06/24 15:42:00 Creatinine-Blood 0.8 mg/dL 0.7 mg/dL - 1.2 mg/dL 02/06/24 15:42:00 Estimated GFR Creatinine 118 ML/MIN/1.73 M2 ?? 02/06/24 15:42:00 Calcium 9.5 mg/dL 8.6 mg/dL - 10.5 mg/dL 02/06/24 15:42:00 TSH 0.39 uIU/mL??Low 0.4 uIU/mL - 4.2 uIU/mL 02/06/24 15:42:00 Free T4 1.78 ng/dL 0.7 ng/dL - 1.8 ng/dL 02/06/24 15:42:00 Ethanol, Serum or Plasma NONE DETECTED ?? 02/06/24 15:42:00 Barbiturate Screen, Urine NONE DETECTED ?? 02/06/24 17:00:00 Cannabinoid Screen, Urine POSITIVE Abnormal ?? 02/06/24 17:00:00 Cocaine Metabolite Screen, Urine NONE DETECTED ?? 02/06/24 17:00:00 Benzodiazepine Screen, Urine NONE DETECTED ?? 02/06/24 17:00:00 Amphetamine Screen, Urine NONE DETECTED ?? 02/06/24 17:00:00 Opiate Screen, Urine NONE DETECTED ?? 02/06/24 17:00:00 COVID-19 by RT-PCR NEGATIVE ?? 02/06/24 17:00:00 Est Creatinine Clearance 113.5 mL/min ?? 02/06/24 16:38:43 ? Patient Care team information Care Team Personnel Name: Not on Staff, PCP Position: S Physician (General Medicine) Member Role: PCP
--- OUTSIDE RECORDS SUMMARY | 2024-03-14 23:53 | XMS_ITS | Continuity of Care Document ---
Author Organization [facility] Address [address] [place] [id number]- Care Team Providers Care Deboning Team Leader Name Role Phone Not on Staff, PCP Primary Care Physician Unavail able Encounter [facility] Date(s): 11/06/23 - 11/06/[address] [address]- Discharge Disposition: A-D/C Walkout Attending Physician: Not on Staff, Attending MD Admitting Physician: Not on Staff, Admitting MD Referring Physician: Not on Staff, Referring MD Medications albuterol CFC free 90 mcg/inh inhalation aerosol 2, puffs, Inhalation, 4 times a day, PRN, # 18 Gm, Refills 0, Tot. Refills 0, Maintenance, 08/03/2314:51:00 EDT, Aerosol, Route to Pharmacy Electronically, [id number], [id number] Start Date: 08/03/23 Status: Ordered fluticasone 50 mcg/inh nasal spray 1 sprays, Nares, Both, 2 times a day, # 16 Gm, 0 Refills, Maintenance, 08/03/23 14:51:00 EDT, [place], [id number], Partial fill upon patient request [...]
[2024-03-14 23:55] LABS: Troponin-I High Sensitivity < 2.7 ng/L (<3.5-35.0)
--- NOTE | 2024-03-15 00:44 | PC.NURSE ---
verbal report given to Kia Nursing supervisor type photography at [facility], ambulance called
[2024-03-15 02:09] VITALS: BP 100/66; PULSE 88; RESP 16; TEMP 35.9; O2SAT 99
== END 2024-03-15 02:10 | disposition home or self-care (01) ==
PROVIDERS: Emergency Provider Internal Medicine
DX: R07.89 Other chest pain (principal); F41.9 Anxiety disorder, unspecified; Z79.899 Other long term (current) drug therapy
CPT/HCPCS: 36415; 80053; 84484; 85025; 93005; 99283

== ENCOUNTER → 2024-03-14 23:15 | Outpatient (BNV) | payer MEDICAID, SELFPAY | PROVIDERS: Emergency Provider Internal Medicine; Visit Provider Internal Medicine | DX: R94.31 Abnormal electrocardiogram [ECG] [EKG] (principal) | CPT/HCPCS: 93010 ==